=== PATIENT | female | born 2000 | race Caucasian/White ===

== ENCOUNTER 2018-01-03 12:13 | Emergency (ER) | payer OTHER ==
[~2018-01-03] VITALS: Ht 160 cm; Wt 85.3 kg
[~2018-01-03 12:13] MED LIST: MULT-506 PO
[2018-01-03 12:20] VITALS: BP 135/75; TEMP 36.9; Ht 160 cm; Wt 85.3 kg
--- NOTE | 2018-01-03 12:31 | EMERGENCY ROOM VISIT NOTE ---
History Report prepared by Nathan: Travis Boss Under the Supervision of: Dr. Jake Posey M.D. First contact with patient: 12:25 Chief Complaint: URINARY SYMPTOMS Stated Complaint: BURNING, HAVING TO PEE A LOT History of Present Illness The patient is a 17 year old female who presents to the Emergency Room with complaints of frequent, burning urination beginning several days ago. The patient reports a history of UTIs and notes that she has had 3 in the past. The patient denies any chance of and reports that her last period was 1 week ago. She denies any, drug allergies, back pain, fever, vomiting, chest pain , vaginal bleeding/discharge or history of kidney stones. 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 Source of History: patient Onset: several days ago Position: other () Quality: burning Timing: other (frequent) Associated Symptoms: No fevers, No chest pain, No vomiting, No back pain, No urinary symptoms Note: Denies: History of kidney stones, Review of Systems See HPI for pertinent positives & negatives. A total of 10 systems reviewed and were otherwise negative. Past Medical & Surgical Medical Problems: (1) UTI (urinary tract infection) Old medical records were reviewed. Nurse's notes were reviewed and I agree with. Family History Patient reports no known family medical history. Social History Smoking Status: Current Every Day Smoker Current/Historical Medications Scheduled Multivitamin (Multivitamin), 1 TAB PO DAILY Nitrofurantoin Monohyd Macrocr (Macrobid), 100 MG PO BID Allergies Coded Allergies: No Known Allergies (Unverified Allergy, Mild, 05/22/08) Physical Exam Vital Signs Date Time Temp Pulse Resp B/P (MAP) Pulse Ox O2 Delivery O2 Flow Rate FiO2 01/03/18 13:10 102 18 100 01/03/18 12:20 36.9 104 16 135/75 99 Room Air Physical Exam General: Non-ill appearing young female in no acute distress. HEENT: Normal cephalic atraumatic. Pupils are equal round and reactive to light. Extraocular movements are intact. Oropharynx is pink with moist mucous membranes. No swelling of the mouth lips or tongue. Neck: Supple with a midline trachea. No meningeal signs or stiffness, no JVD or bruits. No Stridor. Chest: Clear to auscultation bilaterally. No wheezes or rhonchi. No increased work of breathing. Heart: regular rate and rhythm. Abdomen: Soft nontender, nondistended without rebound guarding or rigidity. Extremities: No cyanosis clubbing or edema. No calf tenderness or assymetry Spine/Back. Non tender to palpation. No CVA tenderness Skin: Good turgor without rashes. Neurologic exam: Cranial nerves two through 12 are intact. Motor and sensation are intact and symmetrical throughout. Medical Decision & Procedures Laboratory Results Test 01/03/18 12:30 Urine Color OR Urine Appearance SLIGHTLY CLOUDY (CLEAR) Urine pH (4.5-7.5) Urine Specific [place] 1.022 (1.000-1.030) Urine Protein POS (NEG) Urine Glucose (UA) (NEG) Urine Ketones (NEG) Urine Occult Blood (NEG) Urine Nitrite (NEG) Urine Bilirubin (NEG) Urine Urobilinogen (NEG) Urine Leukocyte Esterase (NEG) Urine RBC 0-4 /hpf (0-4) Urine WBC >30 /hpf (0-5) Urine Epithelial Cells 20-30 /lpf (0-5) Urine Bacteria 1+ (NEG) Urine Test NEG (NEG) Laboratory studies as stated above per my review. Medications Administered Medications (Trade) Dose Ordered Sig/Gabby Route Start Time Stop Time Status Last Admin Dose Admin Nitrofurantoin Macrocrystals (Macrobid Cap) 100 mg ONE ONCE PO 01/03/18 13:00 01/03/18 13:01 DC 01/03/18 12:57 100 MG ED Course 1225: Past medical records reviewed. The patient was evaluated in room C11, and a complete history and physical examination were performed. 1300: Ordered Macrobid Cap 100mg PO. 1305: Upon reevaluation, the patient is resting comfortably. I discussed the results and treatment plan with her. She verbalized agreement of the treatment plan. The patient was discharged home. Medical Decision Differentials include, but are not limited to; kidney infection, This patient comes in with urinary symptoms that are similar to previous UTI. She looks well on exam she is nontoxic. She is afebrile. She has no flank tenderness or anything to suggest pyelonephritis. test was negative. Urinalysis is difficult to interpret due to the fact that she took Azo today. I will start her on Macrobid 100 mg given here as well as a prescription for Macrobid 100 mg twice daily for 5 days. She is to rest and drink plenty of fluids. She should return if: Worsening of symptoms, fever or chills, back pain , any new problems or concerns. Medication Reconcilliation Current Medication List: was personally reviewed by me Blood Pressure Screening Patient's blood pressure: Normal blood pressure Impression Primary Impression: UTI (urinary tract infection) Scribe Attestation The scribe's documentation has been prepared under my direction and personally reviewed by me in its entirety. I confirm that the note above accurately reflects all work, treatment, procedures, and medical decision making performed by me. Departure Information Dispostion Home / Self-Care Prescriptions Nitrofurantoin Monohyd Macrocr (Macrobid) 100 Mg Cap 100 MG PO BID, #10 CAP Prov: Jake Posey M.D. 01/03/18 Referrals Batool Flores M.D. (PCP) Forms HOME CARE DOCUMENTATION FORM, IMPORTANT VISIT INFORMATION Patient Instructions My [facility], UTI Additional Instructions Rest. Drink plenty of fluids. Use Macrobid 100 mg twice a day for the next 5 days Return if: Worsening of symptoms, failure of symptoms to resolve in 24-48 hours , back pain, fever, vomiting, any new problems or concerns Follow-up with your doctor this week if not better
[2018-01-03] MEDS ORDERED: NITR-5 PO (12:51)
[2018-01-03] MEDS ORDERED: NITROFURANTOIN MONOHYDRATE 100 MG CAP PO ONE (13:00)
[2018-01-03 13:10] VITALS: PULSE 102; O2SAT 100
== END 2018-01-03 13:11 | disposition home or self-care (01) ==
LOC: C.EDB 12:16 → C.EDC 13:11
DX: N39.0 Urinary tract infection, site not specified (principal); F17.210 Nicotine dependence, cigarettes, uncomplicated

== ENCOUNTER 2021-10-02 11:48 | Inpatient (IN) ==
[2021-10-02] MEDS ORDERED: OXYTOCIN 30 UNITS/500 ML BAG IV PRN ×2 (12:16)
[2021-10-02 12:34] LABS: Hematocrit (blood only) 37.9 % (37-47); Hemoglobin 12.8 g/dL (12.0-16.0); Mean Corpuscular Hemoglobin 30.8 pg (25-34); Mean Corpuscular Hgb Conc 33.8 g/dL (32-36); Mean Corpuscular Volume 91.1 fL (80-100); Mean Platelet Volume 11.7 fL (7.4-10.4); Platelet Count 190 K/uL (130-400); RDW Coefficient of Variation 13.5 % (11.5-14.5); RDW Standard Deviation 44.4 fL (36.4-46.3); Red Blood Count 4.16 M/uL (4.2-5.4); White Blood Count 12.97 K/uL (4.8-10.8)
[2021-10-02] MEDS: LACTATED RINGER'S 1,000 ML IV PRN ×3 (12:35→21:19)
--- NOTE | 2021-10-02 13:28 | History & Physical Report ---
Date of Service October 02, 2021 Assessment & Plan (1) Encounter for vaginal delivery: Plan: 20 year old at 40 weeks 1 day here for vaginal delivery. -IV started, ordered LR and Pitocin. -Continue to monitor vitals, heart rate monitor, and toco. -Epidural by patient request. -Plan for AROM when appropriate. Admission and Anticipated Discharge Date Admission Date: October 02, 2021 History of Present Illness Primary Care Provider: NO PCP 20 year old at 40weeks and 1 day confirmed via LMP. Here for vaginal delivery. No complications with . Has been attending OB appointments regularly. Only medication is vitamin. Contractions: every 5 minutes. Fluid or blood loss: Denies. Movement: Present. Allergies Allergy/AdvReac Type Severity Reaction Status Date / Time No Known Allergies Allergy Mild Verified 10/02/21 11:15 Home Medications Medication Instructions Recorded Confirmed Type prenat.vits,desiree,[id number] 1 tab PO DAILY 03/13/21 10/02/21 History Patient History Medical History No significant medical problems Varicella vaccination Surgical History No history of previous surgery Family History Grandmother (Maternal) Breast cancer Grandmother (Paternal) Heart disease Denies family history of Ovarian cancer Colorectal cancer Social History Smoking Status: Current every day smoker Cigarettes Per Day: 2-3; Do You Dip or Chew Tobacco: No; Tobacco Cessation Education Requested by Patient: No Hx Alcohol Use: No Hx Substance Use: No Preferred Language: Argentine Valet Service Attendant Required: No Beliefs That Will Affect Care: None marital status: Single marital status details: wilfrido Calderónnorberto (23) [phone] Current Living Situation: Significant Other Current Living Situation Comment: lives with grandmother, 3 dogs current occupational status: employed current occupation: [employer] Other Information That Helps Us Care for You: No Feels Safe at Home: Yes Safety Concerns: Feels Safe At This Time Assistive Devices: None OB History First . Review of Systems Denies fever, chills, sweats Denies shortness of breath, difficulty breathing, chest pain, palpitations, chest pressure. Denies breast pain. Denies dysuria. Denies headache or changes in vision Physical Exam Physical Exam: General: Alert, oriented. No acute distress. Cardiac: Regular rate and rhythm, no murmurs/rubs/gallops. Respiratory: Clear to auscultation bilaterally a/p, no wheezes/rales/rhonchi. No increased work of breathing. Symmetrical chest rise. No respiratory distress. Pelvic: Dilation 4.0 cm; Effacement 100; Station -[address] Otero. Lower Extremities: No deep calf pain. Baseline: 160 Variability: Moderate Accelerations: Present Decelerations: Not present. Results & Data ([facility]) Vital Signs (Past 12 Hours) Vital Signs Temp Pulse Resp BP 10/02/21 12:06 37.0 C 101 H 20 132/82 10/02/21 12:04 101 H 132/82 Laboratory Results - A+ - Antibody screen: Negative - Hgb: 12.8 - Hct: 37.9 - Wbc: 12.97 - Plt: 190 - Rubella Immune - VDRL/RPR: Non reactive. - Gonorrhea: Not detected - Chlamydia: Not detected - HIV: Negative - HbSAg: Negative - GBS: Negative - Glucose tolerance x 2: 82, 115. Supervising Physician Co-Signing Physician Notes Resident Physician Supervision Note: I interviewed and examined the patient. Discussed with Dr. Mercado and agree with findings and plan as documented in the note. Any exceptions or clarifications are listed here: 20yo @ 40 09/20, sent from office in labor - reg ctx with cervix dilated to 4cm and bulging membranes. Anika Q 5 min. A dmit to L&D, EFM/toco, labs, IV. Would like epidural. Documented By: Malou Otero, Resident Activity Tracking Resident Involvement: Resident Care Provided Care Provided: OB Delivery
[2021-10-02 13:47] LABS: Alanine Aminotransferase 8 U/L (7-52); Albumin Level 3.2 gm/dl (3.4-5.0); Alkaline Phosphatase 121 U/L (34-104); Anion Gap 10 (3-11); Aspartate Aminotransferase 12 U/L (13-39); BUN Creatinine Ratio 17.1 (10-20); Bilirubin,Total 0.4 mg/dl (0.2-1.0); Blood Urea Nitrogen 6 mg/dl (6-23); Calcium 8.7 mg/dl (8.5-10.1); Carbon Dioxide 18 mmol/L (21-32); Chloride 106 mmol/L (98-107); Creatinine Clr Calc Pharmacy 289.1 ml/min; Est GFR (African American) > 150.0 ml/min; Est GFR (Non-African American) > 150.0 ml/min; Globulin 3.1 gm/dl (2.5-4.0); Glucose 84 mg/dl (70-99(Fasting)); Potassium 3.7 mmol/L (3.5-5.1); Sodium 134 mmol/L (136-145); Total Protein 6.3 gm/dl (6.0-8.3)
[2021-10-02] MEDS ORDERED: ePHEDrine sulfate 50 MG/ML AMP ONE (15:43)
[2021-10-02] MEDS ORDERED: SODIUM CHLORIDE 0.9% INJ 10 ML VIAL ONE (15:43)
[2021-10-02] MEDS ORDERED: BUPIVACAINE 0.25% 30 ML VIAL ONE ×2 (15:43→21:16)
[2021-10-02] MEDS ORDERED: fentaNYL citrate 100 MCG/2 ML VIAL ONE ×2 (15:44→21:16)
[2021-10-02] MEDS ORDERED: fentaNYL 2MCG/ML ROPIVACAINE 1.25MG/ML 100 ML BAG EPI ONE (15:44)
--- NOTE | 2021-10-02 15:57 | Anesthesiology Consultation ---
Date of Service October 02, 2021 Assessment & Plan (1) Encounter for pre-operative examination: Chart Review Chart Review: Patient NOT seen in Pre Admission Testing and Acceptable Risk for Labor Epidural Consults Requested none History Height/Weight Height: 5 ft 3 in Weight: 102.965 kg Allergies Allergy/AdvReac Type Severity Reaction Status Date / Time No Known Allergies Allergy Mild Verified 10/02/21 11:15 Medications Home Medications Medication Instructions Recorded Confirmed Last Taken prenat.vits,desiree,vwx-[id number]-gmhfx 1 tab PO DAILY 03/13/21 10/02/21 07/30/21 Active Medications Generic Name Dose Route Start Last Admin Trade Name Freq PRN Reason Stop Dose Admin Lactated Ringer's 1,000 mls @ 125 mls/hr 10/02/21 12:16 10/02/21 15:53 Lr IV 10/04/21 12:15 999 mls/hr .Q8H PRN Infusion L&D Protocol Protocol Past Medical History Medical History No significant medical problems Varicella vaccination Past Family History Family History Grandmother (Maternal) Breast cancer Grandmother (Paternal) Heart disease Denies family history of Ovarian cancer Colorectal cancer Past Surgical History Surgical History No history of previous surgery Social History Smoking Status: Current every day smoker tobacco type: cigarettes Smoking cigarettes per day: 2-3 Do You Dip or Chew Tobacco: No Hx Alcohol Use: No Hx Substance Use: No substance use type: does not use Substance Use Type Other:: smoked marijuana last year Last Used Substance Other:: last year Physical Exam Vital Signs Last Vital Signs Temp 37.1 C 10/02/21 15:27 Pulse 104 H 10/02/21 15:27 Resp 20 10/02/21 15:27 BP 132/82 10/02/21 15:27 Testing Laboratory Results 10/02/21 12:20 10/02/21 12:20 Blood Type A Positive 10/02/21 12:20 Antibody Screen NEGATIVE 10/02/21 12:20
[2021-10-02] MEDS ORDERED: NALOXONE HCL 1 MG in SODIUM CHLORIDE 0.9% 1000ML 1,000 ML IV PRN (16:36)
[2021-10-02] MEDS ORDERED: NALOXONE HCL 0.4 MG/1 ML VIAL/CARP IV PRN (16:36)
[2021-10-02] MEDS ORDERED: ePHEDrine sulfate 50 MG/ML AMP IV PRN (16:36)
[2021-10-02] MEDS ORDERED: diphenhydrAMINE 50 MG/ML VIAL IV PRN (16:36)
[2021-10-02] MEDS ORDERED: NALBUPHINE HCL INJ 10 MG/ML AMP IV PRN (16:36)
[2021-10-02] MEDS: ONDANSETRON INJ 2 MG/ML 2 ML VIAL IV PRN (22:51)
[2021-10-02] MEDS: fentaNYL 2MCG/ML ROPIVACAINE 1.25MG/ML 100 ML BAG EPI PRN (22:54)
--- NOTE | 2021-10-03 00:43 | Labor Progress Brief Note ---
Date of Service October 03, 2021 Subjective AROM for clear fluid was performed 1730. Epidural helping with ctx pain, however low back discomfort from bed. FHT Cat 1 [place] difficult to read. SVE /-1 IUPC placed, continue pitocin. Assessment & Plan Admission and Anticipated Discharge Date Admission Date: October 02, 2021 Results & Data ([facility]) Vital Signs (Past 12 Hours) Vital Signs Temp Pulse Resp BP Pulse Ox 10/03/21 00:38 111 H 98 10/03/21 00:33 109 H 98 10/03/21 00:31 98 H 133/73 10/03/21 00:28 101 H 97 10/03/21 00:23 114 H 98 10/03/21 00:18 104 H 125/87 97 10/03/21 00:13 119 H 97 10/03/21 00:08 111 H 97 10/03/21 00:03 116 H 98 10/03/21 00:01 113 H 125/75 10/03/21 00:00 37.1 C 18 10/02/21 23:58 106 H 98 10/02/21 23:53 109 H 98 10/02/21 23:48 104 H 98 10/02/21 23:47 106 H 139/82 10/02/21 23:43 106 H 98 10/02/21 23:38 108 H 97 10/02/21 23:33 109 H 97 10/02/21 23:31 116 H 135/78 10/02/21 23:30 18 10/02/21 23:28 109 H 98 10/02/21 23:23 105 H 98 10/02/21 23:18 104 H 97 10/02/21 23:17 102 H 134/74 10/02/21 23:13 112 H 98 10/02/21 23:08 113 H 98 10/02/21 23:03 111 H 97 10/02/21 23:01 107 H 155/80 H 10/02/21 23:00 36.9 C 18 10/02/21 22:58 106 H 97 10/02/21 22:53 97 H 97 10/02/21 22:48 110 H 98 10/02/21 22:47 116 H 149/76 H 10/02/21 22:43 109 H 100 10/02/21 22:38 104 H 98 10/02/21 22:33 102 H 98 10/02/21 22:32 104 H 138/69 10/02/21 22:30 18 10/02/21 22:28 101 H 97 10/02/21 22:23 104 H 98 10/02/21 22:18 95 H 97 10/02/21 22:16 95 H 114/55 L 10/02/21 22:13 95 H 97 10/02/21 22:08 99 H 98 10/02/21 22:03 99 H 97 10/02/21 22:01 95 H 114/55 L 10/02/21 22:00 18 10/02/21 21:58 95 H 97 10/02/21 21:53 97 H 97 10/02/21 21:48 98 H 98 10/02/21 21:46 89 126/62 10/02/21 21:43 93 H 98 10/02/21 21:38 98 H 98 10/02/21 21:33 100 H 97 10/02/21 21:31 97 H 126/58 L 10/02/21 21:30 18 10/02/21 21:29 96 H 124/58 L 10/02/21 21:28 101 H 97 10/02/21 21:27 101 H 120/57 L 10/02/21 21:25 103 H 129/63 10/02/21 21:23 114 H 140/80 99 10/02/21 21:21 112 H 148/87 H 10/02/21 21:18 114 H 100 10/02/21 21:17 120 H 142/100 H 10/02/21 21:13 116 H 98 10/02/21 21:08 99 H 99 10/02/21 21:03 108 H 97 10/02/21 21:00 36.7 C 105 H 18 136/76 10/02/21 20:58 103 H 99 10/02/21 20:53 98 H 99 10/02/21 20:48 100 H 100 10/02/21 20:45 96 H 124/72 10/02/21 20:43 92 H 99 10/02/21 20:38 95 H 99 10/02/21 20:33 98 H 99 10/02/21 20:31 93 H 131/75 10/02/21 20:30 18 10/02/21 20:28 95 H 100 10/02/21 20:23 94 H 100 10/02/21 20:18 95 H 99 10/02/21 20:16 89 114/57 L 10/02/21 20:13 94 H 98 10/02/21 20:08 99 H 99 10/02/21 20:03 88 98 10/02/21 20:01 85 116/57 L 10/02/21 20:00 18 10/02/21 19:58 86 97 10/02/21 19:53 93 H 99 10/02/21 19:48 95 H 98 10/02/21 19:46 86 125/58 L 10/02/21 19:43 96 H 100 10/02/21 19:38 96 H 99 10/02/21 19:33 96 H 99 10/02/21 19:30 97 H 18 131/75 10/02/21 19:28 96 H 99 10/02/21 19:23 98 H 99 10/02/21 19:18 96 H 100 10/02/21 19:16 96 H 131/74 10/02/21 19:13 98 H 99 10/02/21 19:08 103 H 99 10/02/21 19:03 100 H 100 10/02/21 19:00 104 H 132/68 10/02/21 18:58 106 H 100 10/02/21 18:53 101 H 100 10/02/21 18:48 100 H 100 10/02/21 18:45 96 H 123/65 10/02/21 18:43 102 H 99 10/02/21 18:38 96 H 99 10/02/21 18:33 98 H 98 10/02/21 18:31 101 H 129/61 10/02/21 18:28 102 H 100 10/02/21 18:23 101 H 100 10/02/21 18:18 107 H 96 10/02/21 18:15 109 H 127/65 10/02/21 18:13 99 H 98 10/02/21 18:08 104 H 99 10/02/21 18:03 102 H 100 10/02/21 18:01 37.1 C 20 10/02/21 18:00 101 H 127/66 10/02/21 17:58 106 H 100 10/02/21 17:53 101 H 100 10/02/21 17:48 109 H 100 10/02/21 17:45 108 H 133/71 10/02/21 17:43 104 H 100 10/02/21 17:38 106 H 100 10/02/21 17:33 113 H 100 10/02/21 17:31 108 H 134/74 10/02/21 17:28 97 H 99 10/02/21 17:23 100 H 100 10/02/21 17:18 95 H 100 10/02/21 17:16 96 H 135/65 10/02/21 17:13 109 H 100 10/02/21 17:08 105 H 100 10/02/21 17:03 112 H 100 10/02/21 17:00 100 H 140/71 10/02/21 16:58 107 H 100 10/02/21 16:55 104 H 139/69 10/02/21 16:53 107 H 100 10/02/21 16:50 102 H 138/72 10/02/21 16:48 113 H 100 10/02/21 16:44 107 H 130/60 10/02/21 16:43 110 H 99 10/02/21 16:39 110 H 136/79 10/02/21 16:38 113 H 100 10/02/21 16:33 104 H 130/60 98 10/02/21 16:32 103 H 137/61 10/02/21 16:29 100 H 128/62 10/02/21 16:28 106 H 98 10/02/21 16:27 96 H 139/66 10/02/21 16:25 102 H 139/72 10/02/21 16:23 100 H 134/73 97 10/02/21 16:21 106 H 136/80 10/02/21 16:19 100 H 127/77 10/02/21 16:18 101 H 98 10/02/21 16:13 114 H 97 10/02/21 16:08 116 H 98 10/02/21 16:03 116 H 97 10/02/21 15:58 109 H 98 10/02/21 15:27 37.1 C 104 H 20 132/82 Coding Level of Care Code None
[2021-10-03] MEDS: fentaNYL 2MCG/ML ROPIVACAINE 1.25MG/ML 100 ML BAG EPI PRN ×3 (03:30→12:30)
[2021-10-03] MEDS ORDERED: NURSING L&D Epidural Breakthrough Pain Update ONE (03:53)
[2021-10-03] MEDS: LACTATED RINGER'S 1,000 ML IV PRN ×3 (05:16→15:25)
--- NOTE | 2021-10-03 07:34 | Labor Progress Brief Note ---
Date of Service October 03, 2021 Subjective Comfortable. FHT Cat 1 [place] - low amplitude ctx, Q 2-4 min SVE 6/100/-1 Discussed with pt that will need to increase pitocin, do not have an adequate labor pattern with IUPC. Assessment & Plan Admission and Anticipated Discharge Date Admission Date: October 02, 2021 Results & Data ([facility]) Vital Signs (Past 12 Hours) Vital Signs Temp Pulse Resp BP Pulse Ox 10/03/21 07:30 109 H 10/03/21 07:28 106 H 96 10/03/21 07:23 103 H 97 10/03/21 07:18 103 H 97 10/03/21 07:16 101 H 130/72 10/03/21 07:13 100 H 98 10/03/21 07:08 106 H 97 10/03/21 07:04 37.0 C 16 10/03/21 07:03 114 H 98 10/03/21 07:01 103 H 136/76 10/03/21 06:58 111 H 98 10/03/21 06:53 114 H 99 10/03/21 06:48 110 H 97 10/03/21 06:46 103 H 133/69 10/03/21 06:43 104 H 97 10/03/21 06:38 112 H 98 10/03/21 06:33 100 H 132/74 98 10/03/21 06:32 109 H 93 10/03/21 06:30 18 10/03/21 06:28 101 H 98 10/03/21 06:23 105 H 97 10/03/21 06:18 115 H 98 10/03/21 06:16 111 H 142/81 H 10/03/21 06:13 111 H 98 10/03/21 06:08 108 H 98 10/03/21 06:03 110 H 99 10/03/21 06:01 106 H 128/75 10/03/21 05:59 37.1 C 10/03/21 05:58 111 H 97 10/03/21 05:53 114 H 99 10/03/21 05:48 102 H 97 10/03/21 05:47 102 H 134/83 10/03/21 05:43 108 H 97 10/03/21 05:38 105 H 97 10/03/21 05:33 108 H 97 10/03/21 05:31 108 H 133/85 10/03/21 05:28 106 H 98 10/03/21 05:23 107 H 96 10/03/21 05:18 109 H 97 10/03/21 05:17 107 H 132/83 10/03/21 05:13 107 H 99 10/03/21 05:08 100 H 98 10/03/21 05:03 100 H 97 10/03/21 05:01 99 H 121/67 10/03/21 05:00 18 10/03/21 04:58 99 H 97 10/03/21 04:53 110 H 98 10/03/21 04:48 98 H 96 10/03/21 04:47 101 H 127/67 10/03/21 04:43 101 H 97 10/03/21 04:38 97 H 97 10/03/21 04:33 102 H 96 10/03/21 04:31 98 H 127/69 10/03/21 04:30 98 H 18 93 10/03/21 04:28 100 H 96 10/03/21 04:24 103 H 92 10/03/21 04:23 99 H 97 10/03/21 04:18 95 H 94 10/03/21 04:17 100 H 92 10/03/21 04:16 98 H 121/67 10/03/21 04:13 99 H 97 10/03/21 04:11 105 H 92 10/03/21 04:08 104 H 97 10/03/21 04:04 101 H 94 10/03/21 04:03 102 H 93 10/03/21 04:01 96 H 124/76 10/03/21 04:00 37.1 C 18 10/03/21 03:59 99 H 94 10/03/21 03:58 98 H 96 10/03/21 03:53 102 H 95 10/03/21 03:51 101 H 92 10/03/21 03:48 102 H 97 10/03/21 03:47 100 H 124/81 10/03/21 03:43 109 H 97 10/03/21 03:38 105 H 98 10/03/21 03:33 111 H 97 10/03/21 03:31 111 H 134/75 10/03/21 03:28 109 H 98 10/03/21 03:23 111 H 98 10/03/21 03:18 115 H 99 10/03/21 03:16 101 H 134/77 10/03/21 03:13 102 H 96 10/03/21 03:08 102 H 95 10/03/21 03:03 101 H 92 10/03/21 03:01 96 H 131/71 10/03/21 02:58 98 H 97 10/03/21 02:53 103 H 98 10/03/21 02:48 108 H 97 10/03/21 02:46 111 H 143/70 H 10/03/21 02:43 110 H 98 10/03/21 02:38 113 H 97 10/03/21 02:33 101 H 97 10/03/21 02:31 96 H 131/72 10/03/21 02:30 18 10/03/21 02:29 100 H 92 10/03/21 02:28 98 H 96 10/03/21 02:23 104 H 97 10/03/21 02:18 100 H 97 10/03/21 02:16 103 H 140/81 10/03/21 02:13 102 H 97 10/03/21 02:08 112 H 99 10/03/21 02:03 107 H 131/80 97 10/03/21 01:59 36.9 C 94 H 18 93 10/03/21 01:58 95 H 96 10/03/21 01:53 103 H 98 10/03/21 01:48 99 H 96 10/03/21 01:46 96 H 124/63 10/03/21 01:43 94 H 96 10/03/21 01:39 98 H 94 10/03/21 01:38 93 H 97 10/03/21 01:33 96 H 98 10/03/21 01:32 100 H 126/66 92 10/03/21 01:30 18 10/03/21 01:28 96 H 96 10/03/21 01:23 100 H 96 10/03/21 01:18 112 H 97 10/03/21 01:16 100 H 133/77 10/03/21 01:13 104 H 97 10/03/21 01:08 104 H 97 10/03/21 01:03 101 H 97 10/03/21 01:01 97 H 128/67 10/03/21 00:58 100 H 18 97 10/03/21 00:53 101 H 97 01/20/22 00:48 109 H 98 10/03/21 00:46 106 H 130/71 10/03/21 00:43 109 H 98 10/03/21 00:38 111 H 98 10/03/21 00:33 109 H 98 10/03/21 00:31 98 H 133/73 10/03/21 00:30 18 10/03/21 00:28 101 H 97 10/03/21 00:23 114 H 98 10/03/21 00:18 104 H 125/87 97 10/03/21 00:13 119 H 97 10/03/21 00:08 111 H 97 10/03/21 00:03 116 H 98 10/03/21 00:01 113 H 125/75 10/03/21 00:00 37.1 C 18 10/02/21 23:58 106 H 98 10/02/21 23:53 109 H 98 10/02/21 23:48 104 H 98 10/02/21 23:47 106 H 139/82 10/02/21 23:43 106 H 98 10/02/21 23:38 108 H 97 10/02/21 23:33 109 H 97 10/02/21 23:31 116 H 135/78 10/02/21 23:30 18 10/02/21 23:28 109 H 98 10/02/21 23:23 105 H 98 10/02/21 23:18 104 H 97 10/02/21 23:17 102 H 134/74 10/02/21 23:13 112 H 98 10/02/21 23:08 113 H 98 10/02/21 23:03 111 H 97 10/02/21 23:01 107 H 155/80 H 10/02/21 23:00 36.9 C 18 10/02/21 22:58 106 H 97 10/02/21 22:53 97 H 97 10/02/21 22:48 110 H 98 10/02/21 22:47 116 H 149/76 H 10/02/21 22:43 109 H 100 10/02/21 22:38 104 H 98 10/02/21 22:33 102 H 98 10/02/21 22:32 104 H 138/69 10/02/21 22:30 18 10/02/21 22:28 101 H 97 10/02/21 22:23 104 H 98 10/02/21 22:18 95 H 97 10/02/21 22:16 95 H 114/55 L 10/02/21 22:13 95 H 97 10/02/21 22:08 99 H 98 10/02/21 22:03 99 H 97 10/02/21 22:01 95 H 114/55 L 10/02/21 22:00 18 10/02/21 21:58 95 H 97 10/02/21 21:53 97 H 97 10/02/21 21:48 98 H 98 10/02/21 21:46 89 126/62 10/02/21 21:43 93 H 98 10/02/21 21:38 98 H 98 10/02/21 21:33 100 H 97 10/02/21 21:31 97 H 126/58 L 10/02/21 21:30 18 10/02/21 21:29 96 H 124/58 L 10/02/21 21:28 101 H 97 10/02/21 21:27 101 H 120/57 L 10/02/21 21:25 103 H 129/63 10/02/21 21:23 114 H 140/80 99 10/02/21 21:21 112 H 148/87 H 10/02/21 21:18 114 H 100 10/02/21 21:17 120 H 142/100 H 10/02/21 21:13 116 H 98 10/02/21 21:08 99 H 99 10/02/21 21:03 108 H 97 10/02/21 21:00 36.7 C 105 H 18 136/76 10/02/21 20:58 103 H 99 10/02/21 20:53 98 H 99 10/02/21 20:48 100 H 100 10/02/21 20:45 96 H 124/72 10/02/21 20:43 92 H 99 10/02/21 20:38 95 H 99 10/02/21 20:33 98 H 99 10/02/21 20:31 93 H 131/75 10/02/21 20:30 18 10/02/21 20:28 95 H 100 10/02/21 20:23 94 H 100 10/02/21 20:18 95 H 99 10/02/21 20:16 89 114/57 L 10/02/21 20:13 94 H 98 10/02/21 20:08 99 H 99 10/02/21 20:03 88 98 10/02/21 20:01 85 116/57 L 10/02/21 20:00 18 10/02/21 19:58 86 97 10/02/21 19:53 93 H 99 10/02/21 19:48 95 H 98 10/02/21 19:46 86 125/58 L 10/02/21 19:43 96 H 100 10/02/21 19:38 96 H 99 10/02/21 19:33 96 H 99 Coding Level of Care Code None
[2021-10-03] MEDS: ONDANSETRON INJ 2 MG/ML 2 ML VIAL IV PRN (10:52)
[2021-10-03] MEDS ORDERED: fentaNYL citrate 100 MCG/2 ML VIAL ONE ×2 (14:10→18:22)
[2021-10-03] MEDS ORDERED: LIDOCAINE 2% 20 MG/ML 5 ML SYR IV ONE (14:10)
[2021-10-03] MEDS ORDERED: BUPIVACAINE 0.25% 30 ML VIAL ONE ×2 (14:11→17:57)
--- NOTE | 2021-10-03 14:25 | Communication Note ---
Date of Service: October 03, 2021 pt c/o constant pain in the upper belly region. pt is laying on her side with peanut ball in place. had them sit patient up and place on back. bolused with 100 mcg of fentanyl, 3mL 2% lidocaine, and 5 mL 0.25% bupivicaine in divided doses. pt reports pain is more tolerable. vss
[2021-10-03] MEDS ORDERED: fentaNYL 2MCG/ML ROPIVACAINE 1.25MG/ML 100 ML BAG EPI ONE (17:33)
[2021-10-03] MEDS ORDERED: LACTATED RINGER'S 1,000 ML IV SCH ×2 (17:45→20:00)
--- NOTE | 2021-10-03 17:55 | Obstetrical Progress Note ---
Date of Service October 03, 2021 Assessment & Plan (1) Failure to progress in labor: Plan: cervix has remained the same for 4 hours- head feels asynclitic I suspect macrosomia as well After discussion with patient and SO will proceed with LTCS. the procedure and its risks were reviewed with the patient and all questions answered to their satisfaction. Admission and Anticipated Discharge Date Admission Date: October 02, 2021 Subjective slow progress in labor. difficult to obtain an effective contraction pattern. pitocin now at 23 milliunits and contractions are every minute low amplitude. Review of Systems Review of Systems: All systems reviewed & are unremarkable except as noted in HPI & below Physical Exam Constitutional: WD/WN, vitals as above Psychiatric: A+Ox3, euthymic affect Genitourinary: OB Exam Abdomen: + vertex, + estimated weight (8-9 pounds) and + regular contractions Manual OB Exam: + cervical dilation 7 cm, + cervical effacement 100% (right side now edematous) and + station 0 OB Exam Monitor Tracing: + external FHT monitor used, + external uterine monitor used, + category I and + normal FHT variability head asynclitic Results & Data (MN) Vital Signs (Past 12 Hours) Vital Signs Temp Pulse Resp BP Pulse Ox 10/03/21 17:50 123 H 98 10/03/21 17:47 127 H 162/89 H 10/03/21 17:45 125 H 98 10/03/21 17:40 127 H 98 10/03/21 17:35 131 H 98 10/03/21 17:30 126 H 97 10/03/21 17:25 123 H 98 10/03/21 17:20 128 H 99 10/03/21 17:16 118 H 162/79 H 10/03/21 17:15 122 H 98 10/03/21 17:10 122 H 97 10/03/21 17:05 120 H 97 10/03/21 17:02 120 H 142/77 H 10/03/21 17:01 98.6 F 20 10/03/21 17:00 121 H 99 10/03/21 16:55 121 H 98 10/03/21 16:50 119 H 98 10/03/21 16:47 120 H 136/73 10/03/21 16:45 124 H 99 10/03/21 16:40 114 H 98 10/03/21 16:35 112 H 99 10/03/21 16:31 109 H 20 148/78 H 10/03/21 16:30 113 H 98 10/03/21 16:25 115 H 97 10/03/21 16:20 118 H 97 10/03/21 16:18 108 H 142/80 H 10/03/21 16:15 108 H 97 10/03/21 16:10 120 H 97 10/03/21 16:05 115 H 97 10/03/21 16:02 110 H 162/84 H 10/03/21 16:01 20 10/03/21 16:00 111 H 96 10/03/21 15:55 115 H 98 10/03/21 15:50 123 H 99 10/03/21 15:46 123 H 144/85 H 10/03/21 15:45 126 H 100 10/03/21 15:40 121 H 100 10/03/21 15:35 118 H 99 10/03/21 15:32 116 H 143/65 H 10/03/21 15:31 20 10/03/21 15:30 118 H 99 10/03/21 15:27 119 H 92 10/03/21 15:25 125 H 98 10/03/21 15:20 119 H 99 10/03/21 15:18 121 H 139/78 10/03/21 15:15 120 H 100 10/03/21 15:10 122 H 99 10/03/21 15:05 98.2 F 122 H 20 99 10/03/21 15:01 115 H 143/82 H 10/03/21 15:00 117 H 98 10/03/21 14:55 117 H 97 10/03/21 14:54 117 H 137/79 10/03/21 14:50 119 H 98 10/03/21 14:45 113 H 16 96 10/03/21 14:40 119 H 97 10/03/21 14:35 120 H 96 10/03/21 14:30 117 H 16 136/78 97 10/03/21 14:28 116 H 143/86 H 10/03/21 14:26 113 H 139/82 10/03/21 14:25 115 H 95 10/03/21 14:24 110 H 140/84 94 10/03/21 14:22 116 H 140/87 10/03/21 14:20 116 H 139/85 97 10/03/21 14:18 118 H 150/89 H 10/03/21 14:15 122 H 16 152/82 H 99 10/03/21 14:10 120 H 100 10/03/21 14:05 118 H 100 10/03/21 14:01 112 H 140/89 10/03/21 14:00 113 H 16 97 10/03/21 13:55 112 H 97 10/03/21 13:50 129 H 98 10/03/21 13:46 120 H 130/72 10/03/21 13:45 120 H 16 100 10/03/21 13:40 117 H 100 10/03/21 13:35 118 H 99 10/03/21 13:31 112 H 127/72 10/03/21 13:30 98.8 F 112 H 16 99 10/03/21 13:25 109 H 98 10/03/21 13:20 111 H 97 10/03/21 13:07 119 H 97 10/03/21 13:02 117 H 97 10/03/21 13:01 118 H 20 138/88 10/03/21 12:57 119 H 97 10/03/21 12:52 113 H 96 10/03/21 12:47 111 H 129/78 97 10/03/21 12:42 114 H 97 10/03/21 12:33 115 H 100 10/03/21 12:32 111 H 140/94 10/03/21 12:30 18 10/03/21 12:28 112 H 100 10/03/21 12:23 106 H 98 10/03/21 12:18 109 H 98 10/03/21 12:16 101 H 141/77 H 10/03/21 12:15 18 10/03/21 12:13 105 H 97 10/03/21 12:08 107 H 97 10/03/21 12:03 107 H 100 10/03/21 12:01 94 H 142/77 H 10/03/21 12:00 18 10/03/21 11:58 112 H 98 10/03/21 11:53 103 H 97 10/03/21 11:48 115 H 99 10/03/21 11:46 108 H 142/80 H 10/03/21 11:45 18 10/03/21 11:43 107 H 98 10/03/21 11:38 113 H 98 10/03/21 11:33 106 H 98 10/03/21 11:31 107 H 135/83 10/03/21 11:30 16 10/03/21 11:28 108 H 98 10/03/21 11:23 103 H 99 10/03/21 11:18 106 H 98 10/03/21 11:16 107 H 129/82 10/03/21 11:15 16 10/03/21 11:13 110 H 98 10/03/21 11:08 113 H 99 10/03/21 11:03 109 H 97 10/03/21 11:01 105 H 125/59 L 10/03/21 10:58 99 H 99 10/03/21 10:53 108 H 97 10/03/21 10:51 108 H 154/82 H 10/03/21 10:48 113 H 98 10/03/21 10:47 110 H 161/90 H 10/03/21 10:45 16 10/03/21 10:43 114 H 99 10/03/21 10:38 106 H 97 10/03/21 10:33 108 H 97 10/03/21 10:32 107 H 128/62 10/03/21 10:30 16 10/03/21 10:28 102 H 97 10/03/21 10:23 103 H 97 10/03/21 10:18 107 H 97 10/03/21 10:16 108 H 124/60 10/03/21 10:15 16 10/03/21 10:13 103 H 97 10/03/21 10:08 109 H 96 10/03/21 10:03 103 H 96 10/03/21 10:02 102 H 123/57 L 10/03/21 10:01 106 H 94 10/03/21 10:00 16 10/03/21 09:58 109 H 96 10/03/21 09:53 117 H 97 10/03/21 09:48 119 H 97 10/03/21 09:46 110 H 140/82 10/03/21 09:45 18 10/03/21 09:43 110 H 97 10/03/21 09:38 108 H 97 10/03/21 09:36 103 H 93 10/03/21 09:33 115 H 97 10/03/21 09:32 112 H 124/56 L 10/03/21 09:30 18 10/03/21 09:28 105 H 98 10/03/21 09:23 103 H 97 10/03/21 09:18 103 H 98 10/03/21 09:17 105 H 136/80 10/03/21 09:15 98.8 F 16 10/03/21 09:13 115 H 98 10/03/21 09:08 108 H 98 10/03/21 09:03 101 H 95 10/03/21 09:02 101 H 142/75 H 94 10/03/21 09:01 20 10/03/21 08:58 102 H 95 10/03/21 08:55 99 H 93 10/03/21 08:53 101 H 98 10/03/21 08:50 18 10/03/21 08:48 109 H 99 10/03/21 08:46 109 H 139/79 10/03/21 08:43 109 H 97 10/03/21 08:38 114 H 98 10/03/21 08:35 18 10/03/21 08:33 108 H 98 10/03/21 08:32 109 H 132/73 10/03/21 08:28 112 H 98 10/03/21 08:23 111 H 97 10/03/21 08:20 18 10/03/21 08:18 106 H 97 10/03/21 08:17 105 H 133/75 10/03/21 08:13 111 H 98 10/03/21 08:08 108 H 97 10/03/21 08:05 16 10/03/21 08:03 103 H 97 10/03/21 08:02 104 H 133/76 10/03/21 07:58 102 H 97 10/03/21 07:53 102 H 96 10/03/21 07:50 18 10/03/21 07:48 106 H 97 10/03/21 07:47 110 H 129/66 10/03/21 07:43 128 H 98 10/03/21 07:38 114 H 97 10/03/21 07:35 18 10/03/21 07:33 112 H 97 10/03/21 07:32 104 H 133/78 10/03/21 07:30 109 H 94 10/03/21 07:28 106 H 96 10/03/21 07:23 103 H 97 10/03/21 07:20 18 10/03/21 07:18 103 H 97 10/03/21 07:16 101 H 130/72 10/03/21 07:13 100 H 98 10/03/21 07:08 106 H 97 10/03/21 07:04 98.6 F 16 10/03/21 07:03 114 H 98 10/03/21 07:01 103 H 136/76 10/03/21 06:58 111 H 98 10/03/21 06:53 114 H 99 10/03/21 06:48 110 H 97 10/03/21 06:46 103 H 133/69 10/03/21 06:43 104 H 97 10/03/21 06:38 112 H 98 10/03/21 06:33 100 H 132/74 98 10/03/21 06:32 109 H 93 10/03/21 06:30 18 10/03/21 06:28 101 H 98 10/03/21 06:23 105 H 97 10/03/21 06:18 115 H 98 10/03/21 06:16 111 H 142/81 H 10/03/21 06:13 111 H 98 10/03/21 06:08 108 H 98 10/03/21 06:03 110 H 99 10/03/21 06:01 106 H 128/75 10/03/21 05:59 98.8 F 10/03/21 05:58 111 H 97 10/03/21 05:53 114 H 99 PG Care Time/CCT Total # of Minutes Spent Total Time Spent with Patient: Total time spent is greater than 50% in coordination of care (as documented) at patient's floor/unit and/or counseling patient: Coding Level of Care Code None Diagnoses Failure to progress in labor O62.2
[2021-10-03] MEDS ORDERED: CITRIC ACID/SODIUM CITRATE 15 ML UDC ONE (18:15)
[2021-10-03] MEDS ORDERED: CHLOROPROCAINE HCL 3% 20 ML VIAL ONE (18:22)
[2021-10-03] MEDS ORDERED: OXYTOCIN 10 UNITS/ML 10ML VIAL ONE (18:22)
[2021-10-03] MEDS ORDERED: NALOXONE HCL 0.08 MG in SYRINGE 1.8 ML IV PRN (18:31)
[2021-10-03] MEDS ORDERED: NALOXONE HCL 1 MG in SODIUM CHLORIDE 0.9% 1000ML 1,000 ML IV PRN (18:31)
[2021-10-03] MEDS ORDERED: MoRPHine SULFATE 2 MG/ML CARP IV PRN (18:31)
[2021-10-03] MEDS ORDERED: NALOXONE HCL 0.4 MG/1 ML VIAL/CARP IV PRN (18:31)
[2021-10-03] MEDS ORDERED: diphenhydrAMINE 50 MG/ML VIAL IV PRN (18:31)
[2021-10-03] MEDS ORDERED: MoRPHine SULFATE PF 1 MG/ML 10 ML AMP/VIAL EPI ONE (18:31)
[2021-10-03] MEDS ORDERED: NALBUPHINE HCL INJ 10 MG/ML AMP IV PRN (18:31)
[2021-10-03] MEDS ORDERED: ePHEDrine sulfate 50 MG/ML AMP IV PRN (18:31)
[2021-10-03] MEDS ORDERED: LACTATED RINGER'S 500 ML IV PRN (18:31)
[2021-10-03] MEDS ORDERED: ONDANSETRON INJ 2 MG/ML 2 ML VIAL IV PRN (18:31)
--- NOTE | 2021-10-03 18:31 | Communication Note ---
Date of Service: October 03, 2021 pt is now for a primary csection for failure to progress. pt epidural has required several redoses and has been questionable if she has gotten significant relief. i decided it was best to replace the epidural prior to the csection. pt was identified. l3-l4 landmark found. sterile prep/drape/mask/gloves used. 1% lidocaine infiltrated. 17 gauge touey advanced to SUE to air at 6cm. easy catheter thread to 11 cm. test dose of 1% lido with epi. negative IV/IT. tegaderm placed and catheter secured. a bolus of 5ml 0.25% bupivicaine given. pt to go to OR.
[2021-10-03] MEDS ORDERED: NO NARCOTICS OR SEDATIVES SCH (18:45)
[2021-10-03] MEDS ORDERED: SODIUM CHLORIDE 0.9% 1000ML 1,000 ML IV SCH (18:45)
[2021-10-03] MEDS ORDERED: DC INTRASPINAL MORPHINE SCH (18:45)
[2021-10-03] MEDS ORDERED: MoRPHine SULFATE PF 1 MG/ML 10 ML AMP/VIAL ONE (18:48)
--- NOTE | 2021-10-03 19:43 | Post Operative Brief Note ---
PG Immediate Post Op with CF Date of Surgery October 03, 2021 Pre & Post Diagnosis Operation Date: 10/03/21 18:30 Pre-Op Diagnosis: Failure to progress in labor Post-Op Diagnosis: Failure to progress in labor I identified the patient and participated in the time-out.: Yes Procedure Operation Date: 10/03/21 18:30 Actual Procedures p Section in OR delivery of live male child at [id number]. (Bilateral) - Mary Mcgowan MD, FACOG Surgeon Mary Mcgowan MD, FACOG Cost Engineer Rodolfo Roa MD Estimated Blood Loss 750 Findings Consistent with Post-Op Diagnosis gravid uterus normal ovaries and tubes infant in OP presentation Specimens Specimen Description: A. Cord Blood B. Placenta - hold Drains Calhoun Catheter (Pt arrived to OR with calhoun intact. ) Anesthesia Type Labor Epidural Complications none Disposition Accompanied Patient To Recovery: Yes
[2021-10-03] MEDS ORDERED: SUPERCREAM 0.870% 15 GM JAR EXT PRN (19:59)
[2021-10-03] MEDS ORDERED: DIPHTHERIA/TETANUS/PERTUSSIS 0.5 ML SYR/VIAL IM ONE (19:59)
[2021-10-03] MEDS ORDERED: BENZOCAINE 20% AER SPR 82.5 GM CAN EXT PRN (19:59)
[2021-10-03] MEDS ORDERED: MAGNESIUM HYDROXIDE SUSP 30 ML UDC PO PRN (19:59)
[2021-10-03] MEDS ORDERED: SENNA 8.6 MG TAB PO PRN (19:59)
[2021-10-03] MEDS ORDERED: HYDROCORTISONE ACETATE 25 MG SUPP PR PRN (19:59)
--- NOTE | 2021-10-03 20:05 | Anesthesiology Progress Note ---
Date of Service October 03, 2021 Anesthesia Post Procedure Vital Signs Vital Signs: Temp Pulse Resp BP Pulse Ox 10/03/21 20:01 122 H 150/69 H 10/03/21 20:00 126 H 100 10/03/21 19:55 125 H 100 10/03/21 19:51 120 H 130/67 10/03/21 19:50 196 H 100 10/03/21 18:24 131 H 135/60 10/03/21 18:23 127 H 131/61 10/03/21 18:21 125 H 122/67 10/03/21 18:20 126 H 99 10/03/21 18:19 133 H 130/57 L 10/03/21 18:16 122 H 130/62 10/03/21 18:15 127 H 98 10/03/21 18:14 129 H 142/75 H 10/03/21 18:10 136 H 99 10/03/21 18:05 127 H 95 10/03/21 18:01 37.0 C 20 10/03/21 18:00 138 H 98 10/03/21 17:55 135 H 97 10/03/21 17:50 123 H 98 10/03/21 17:47 127 H 162/89 H 10/03/21 17:45 125 H 98 10/03/21 17:40 127 H 98 10/03/21 17:35 131 H 98 10/03/21 17:30 126 H 97 10/03/21 17:25 123 H 98 10/03/21 17:20 128 H 99 10/03/21 17:16 118 H 162/79 H 10/03/21 17:15 122 H 98 10/03/21 17:10 122 H 97 10/03/21 17:05 120 H 97 10/03/21 17:02 120 H 142/77 H 10/03/21 17:01 37.0 C 20 10/03/21 17:00 121 H 99 10/03/21 16:55 121 H 98 10/03/21 16:50 119 H 98 10/03/21 16:47 120 H 136/73 10/03/21 16:45 124 H 99 10/03/21 16:40 114 H 98 10/03/21 16:35 112 H 99 10/03/21 16:31 109 H 20 148/78 H 10/03/21 16:30 113 H 98 10/03/21 16:25 115 H 97 10/03/21 16:20 118 H 97 10/03/21 16:18 108 H 142/80 H 10/03/21 16:15 108 H 97 10/03/21 16:10 120 H 97 10/03/21 16:05 115 H 97 10/03/21 16:02 110 H 162/84 H 10/03/21 16:01 20 10/03/21 16:00 111 H 96 10/03/21 15:55 115 H 98 10/03/21 15:50 123 H 99 10/03/21 15:46 123 H 144/85 H 10/03/21 15:45 126 H 100 10/03/21 15:40 121 H 100 10/03/21 15:35 118 H 99 10/03/21 15:32 116 H 143/65 H 10/03/21 15:31 20 10/03/21 15:30 118 H 99 10/03/21 15:27 119 H 92 10/03/21 15:25 125 H 98 10/03/21 15:20 119 H 99 10/03/21 15:18 121 H 139/78 10/03/21 15:15 120 H 100 10/03/21 15:10 122 H 99 10/03/21 15:05 36.8 C 122 H 20 99 10/03/21 15:01 115 H 143/82 H 10/03/21 15:00 117 H 98 10/03/21 14:55 117 H 97 10/03/21 14:54 117 H 137/79 10/03/21 14:50 119 H 98 10/03/21 14:45 113 H 16 96 10/03/21 14:40 119 H 97 10/03/21 14:35 120 H 96 10/03/21 14:30 117 H 16 136/78 97 10/03/21 14:28 116 H 143/86 H 10/03/21 14:26 113 H 139/82 10/03/21 14:25 115 H 95 10/03/21 14:24 110 H 140/84 94 10/03/21 14:22 116 H 140/87 10/03/21 14:20 116 H 139/85 97 10/03/21 14:18 118 H 150/89 H 10/03/21 14:15 122 H 16 152/82 H 99 10/03/21 14:10 120 H 100 10/03/21 14:05 118 H 100 10/03/21 14:01 112 H 140/89 10/03/21 14:00 113 H 16 97 10/03/21 13:55 112 H 97 10/03/21 13:50 129 H 98 10/03/21 13:46 120 H 130/72 10/03/21 13:45 120 H 16 100 10/03/21 13:40 117 H 100 10/03/21 13:35 118 H 99 10/03/21 13:31 112 H 127/72 10/03/21 13:30 37.1 C 112 H 16 99 10/03/21 13:25 109 H 98 10/03/21 13:20 111 H 97 10/03/21 13:07 119 H 97 10/03/21 13:02 117 H 97 10/03/21 13:01 118 H 20 138/88 10/03/21 12:57 119 H 97 10/03/21 12:52 113 H 96 10/03/21 12:47 111 H 129/78 97 10/03/21 12:42 114 H 97 10/03/21 12:33 115 H 100 10/03/21 12:32 111 H 140/94 10/03/21 12:30 18 10/03/21 12:28 112 H 100 10/03/21 12:23 106 H 98 10/03/21 12:18 109 H 98 10/03/21 12:16 101 H 141/77 H 10/03/21 12:15 18 10/03/21 12:13 105 H 97 10/03/21 12:08 107 H 97 10/03/21 12:03 107 H 100 10/03/21 12:01 94 H 142/77 H 10/03/21 12:00 18 10/03/21 11:58 112 H 98 10/03/21 11:53 103 H 97 10/03/21 11:48 115 H 99 10/03/21 11:46 108 H 142/80 H 10/03/21 11:45 18 10/03/21 11:43 107 H 98 10/03/21 11:38 113 H 98 10/03/21 11:33 106 H 98 10/03/21 11:31 107 H 135/83 10/03/21 11:30 16 10/03/21 11:28 108 H 98 10/03/21 11:23 103 H 99 10/03/21 11:18 106 H 98 10/03/21 11:16 107 H 129/82 10/03/21 11:15 16 10/03/21 11:13 110 H 98 10/03/21 11:08 113 H 99 10/03/21 11:03 109 H 97 10/03/21 11:01 105 H 125/59 L 10/03/21 10:58 99 H 99 10/03/21 10:53 108 H 97 10/03/21 10:51 108 H 154/82 H 10/03/21 10:48 113 H 98 10/03/21 10:47 110 H 161/90 H 10/03/21 10:45 16 10/03/21 10:43 114 H 99 10/03/21 10:38 106 H 97 10/03/21 10:33 108 H 97 10/03/21 10:32 107 H 128/62 10/03/21 10:30 16 10/03/21 10:28 102 H 97 10/03/21 10:23 103 H 97 10/03/21 10:18 107 H 97 10/03/21 10:16 108 H 124/60 10/03/21 10:15 16 10/03/21 10:13 103 H 97 10/03/21 10:08 109 H 96 10/03/21 10:03 103 H 96 10/03/21 10:02 102 H 123/57 L 10/03/21 10:01 106 H 94 10/03/21 10:00 16 10/03/21 09:58 109 H 96 10/03/21 09:53 117 H 97 10/03/21 09:48 119 H 97 10/03/21 09:46 110 H 140/82 10/03/21 09:45 18 10/03/21 09:43 110 H 97 10/03/21 09:38 108 H 97 10/03/21 09:36 103 H 93 10/03/21 09:33 115 H 97 10/03/21 09:32 112 H 124/56 L 10/03/21 09:30 18 10/03/21 09:28 105 H 98 10/03/21 09:23 103 H 97 10/03/21 09:18 103 H 98 10/03/21 09:17 105 H 136/80 10/03/21 09:15 37.1 C 16 10/03/21 09:13 115 H 98 10/03/21 09:08 108 H 98 10/03/21 09:03 101 H 95 10/03/21 09:02 101 H 142/75 H 94 10/03/21 09:01 20 10/03/21 08:58 102 H 95 10/03/21 08:55 99 H 93 10/03/21 08:53 101 H 98 10/03/21 08:50 18 10/03/21 08:48 109 H 99 10/03/21 08:46 109 H 139/79 10/03/21 08:43 109 H 97 10/03/21 08:38 114 H 98 10/03/21 08:35 18 10/03/21 08:33 108 H 98 10/03/21 08:32 109 H 132/73 10/03/21 08:28 112 H 98 10/03/21 08:23 111 H 97 10/03/21 08:20 18 10/03/21 08:18 106 H 97 10/03/21 08:17 105 H 133/75 10/03/21 08:13 111 H 98 10/03/21 08:08 108 H 97 10/03/21 08:05 16 10/03/21 08:03 103 H 97 10/03/21 08:02 104 H 133/76 10/03/21 07:58 102 H 97 10/03/21 07:53 102 H 96 10/03/21 07:50 18 10/03/21 07:48 106 H 97 10/03/21 07:47 110 H 129/66 10/03/21 07:43 128 H 98 10/03/21 07:38 114 H 97 10/03/21 07:35 18 10/03/21 07:33 112 H 97 10/03/21 07:32 104 H 133/78 10/03/21 07:30 109 H 94 10/03/21 07:28 106 H 96 10/03/21 07:23 103 H 97 10/03/21 07:20 18 10/03/21 07:18 103 H 97 10/03/21 07:16 101 H 130/72 10/03/21 07:13 100 H 98 10/03/21 07:08 106 H 97 10/03/21 07:04 37.0 C 16 10/03/21 07:03 114 H 98 10/03/21 07:01 103 H 136/76 10/03/21 06:58 111 H 98 10/03/21 06:53 114 H 99 10/03/21 06:48 110 H 97 10/03/21 06:46 103 H 133/69 10/03/21 06:43 104 H 97 10/03/21 06:38 112 H 98 10/03/21 06:33 100 H 132/74 98 10/03/21 06:32 109 H 93 10/03/21 06:30 18 10/03/21 06:28 101 H 98 10/03/21 06:23 105 H 97 10/03/21 06:18 115 H 98 10/03/21 06:16 111 H 142/81 H 10/03/21 06:13 111 H 98 10/03/21 06:08 108 H 98 10/03/21 06:03 110 H 99 10/03/21 06:01 106 H 128/75 10/03/21 05:59 37.1 C 10/03/21 05:58 111 H 97 10/03/21 05:53 114 H 99 10/03/21 05:48 102 H 97 10/03/21 05:47 102 H 134/83 10/03/21 05:43 108 H 97 10/03/21 05:38 105 H 97 10/03/21 05:33 108 H 97 10/03/21 05:31 108 H 133/85 10/03/21 05:28 106 H 98 10/03/21 05:23 107 H 96 10/03/21 05:18 109 H 97 10/03/21 05:17 107 H 132/83 10/03/21 05:13 107 H 99 10/03/21 05:08 100 H 98 10/03/21 05:03 100 H 97 10/03/21 05:01 99 H 121/67 10/03/21 05:00 18 10/03/21 04:58 99 H 97 10/03/21 04:53 110 H 98 10/03/21 04:48 98 H 96 10/03/21 04:47 101 H 127/67 10/03/21 04:43 101 H 97 10/03/21 04:38 97 H 97 10/03/21 04:33 102 H 96 10/03/21 04:31 98 H 127/69 10/03/21 04:30 98 H 18 93 10/03/21 04:28 100 H 96 10/03/21 04:24 103 H 92 10/03/21 04:23 99 H 97 10/03/21 04:18 95 H 94 10/03/21 04:17 100 H 92 10/03/21 04:16 98 H 121/67 10/03/21 04:13 99 H 97 10/03/21 04:11 105 H 92 10/03/21 04:08 104 H 97 10/03/21 04:04 101 H 94 10/03/21 04:03 102 H 93 10/03/21 04:01 96 H 124/76 10/03/21 04:00 37.1 C 18 10/03/21 03:59 99 H 94 10/03/21 03:58 98 H 96 10/03/21 03:53 102 H 95 10/03/21 03:51 101 H 92 10/03/21 03:48 102 H 97 10/03/21 03:47 100 H 124/81 10/03/21 03:43 109 H 97 10/03/21 03:38 105 H 98 10/03/21 03:33 111 H 97 10/03/21 03:31 111 H 134/75 10/03/21 03:28 109 H 98 10/03/21 03:23 111 H 98 10/03/21 03:18 115 H 99 10/03/21 03:16 101 H 134/77 10/03/21 03:13 102 H 96 10/03/21 03:08 102 H 95 10/03/21 03:03 101 H 92 10/03/21 03:01 96 H 131/71 10/03/21 02:58 98 H 97 10/03/21 02:53 103 H 98 10/03/21 02:48 108 H 97 10/03/21 02:46 111 H 143/70 H 10/03/21 02:43 110 H 98 10/03/21 02:38 113 H 97 10/03/21 02:33 101 H 97 10/03/21 02:31 96 H 131/72 10/03/21 02:30 18 10/03/21 02:29 100 H 92 10/03/21 02:28 98 H 96 10/03/21 02:23 104 H 97 10/03/21 02:18 100 H 97 10/03/21 02:16 103 H 140/81 10/03/21 02:13 102 H 97 10/03/21 02:08 112 H 99 10/03/21 02:03 107 H 131/80 97 10/03/21 01:59 36.9 C 94 H 18 93 10/03/21 01:58 95 H 96 10/03/21 01:53 103 H 98 10/03/21 01:48 99 H 96 10/03/21 01:46 96 H 124/63 10/03/21 01:43 94 H 96 10/03/21 01:39 98 H 94 10/03/21 01:38 93 H 97 10/03/21 01:33 96 H 98 10/03/21 01:32 100 H 126/66 92 10/03/21 01:30 18 10/03/21 01:28 96 H 96 10/03/21 01:23 100 H 96 10/03/21 01:18 112 H 97 10/03/21 01:16 100 H 133/77 10/03/21 01:13 104 H 97 10/03/21 01:08 104 H 97 10/03/21 01:03 101 H 97 10/03/21 01:01 97 H 128/67 10/03/21 00:58 100 H 18 97 10/03/21 00:53 101 H 97 10/03/21 00:48 109 H 98 10/03/21 00:46 106 H 130/71 10/03/21 00:43 109 H 98 10/03/21 00:38 111 H 98 10/03/21 00:33 109 H 98 10/03/21 00:31 98 H 133/73 10/03/21 00:30 18 10/03/21 00:28 101 H 97 10/03/21 00:23 114 H 98 10/03/21 00:18 104 H 125/87 97 10/03/21 00:13 119 H 97 10/03/21 00:08 111 H 97 10/03/21 00:03 116 H 98 10/03/21 00:01 113 H 125/75 10/03/21 00:00 37.1 C 18 10/02/21 23:58 106 H 98 10/02/21 23:53 109 H 98 10/02/21 23:48 104 H 98 10/02/21 23:47 106 H 139/82 10/02/21 23:43 106 H 98 10/02/21 23:38 108 H 97 10/02/21 23:33 109 H 97 10/02/21 23:31 116 H 135/78 10/02/21 23:30 18 10/02/21 23:28 109 H 98 10/02/21 23:23 105 H 98 10/02/21 23:18 104 H 97 10/02/21 23:17 102 H 134/74 10/02/21 23:13 112 H 98 10/02/21 23:08 113 H 98 10/02/21 23:03 111 H 97 10/02/21 23:01 107 H 155/80 H 10/02/21 23:00 36.9 C 18 10/02/21 22:58 106 H 97 10/02/21 22:53 97 H 97 10/02/21 22:48 110 H 98 10/02/21 22:47 116 H 149/76 H 10/02/21 22:43 109 H 100 10/02/21 22:38 104 H 98 10/02/21 22:33 102 H 98 10/02/21 22:32 104 H 138/69 10/02/21 22:30 18 10/02/21 22:28 101 H 97 10/02/21 22:23 104 H 98 10/02/21 22:18 95 H 97 10/02/21 22:16 95 H 114/55 L 10/02/21 22:13 95 H 97 10/02/21 22:08 99 H 98 10/02/21 22:03 99 H 97 10/02/21 22:01 95 H 114/55 L 10/02/21 22:00 18 10/02/21 21:58 95 H 97 10/02/21 21:53 97 H 97 10/02/21 21:48 98 H 98 10/02/21 21:46 89 126/62 01/19/22 21:43 93 H 98 10/02/21 21:38 98 H 98 10/02/21 21:33 100 H 97 10/02/21 21:31 97 H 126/58 L 10/02/21 21:30 18 10/02/21 21:29 96 H 124/58 L 10/02/21 21:28 101 H 97 10/02/21 21:27 101 H 120/57 L 10/02/21 21:25 103 H 129/63 10/02/21 21:23 114 H 140/80 99 10/02/21 21:21 112 H 148/87 H 10/02/21 21:18 114 H 100 10/02/21 21:17 120 H 142/100 H 10/02/21 21:13 116 H 98 10/02/21 21:08 99 H 99 10/02/21 21:03 108 H 97 10/02/21 21:00 36.7 C 105 H 18 136/76 10/02/21 20:58 103 H 99 10/02/21 20:53 98 H 99 10/02/21 20:48 100 H 100 10/02/21 20:45 96 H 124/72 10/02/21 20:43 92 H 99 10/02/21 20:38 95 H 99 10/02/21 20:33 98 H 99 10/02/21 20:31 93 H 131/75 10/02/21 20:30 18 10/02/21 20:28 95 H 100 10/02/21 20:23 94 H 100 10/02/21 20:18 95 H 99 10/02/21 20:16 89 114/57 L 10/02/21 20:13 94 H 98 10/02/21 20:08 99 H 99 Pain Intensity Left Abdomen: Pain Intensity: 3 Bilateral Lower Back: Pain Intensity: 8 Transfer of Care Handoff Completed per policy Notes Mental Status: alert / awake / arousable and participated in evaluation Patient Amnestic to Procedure: Yes Nausea / Vomiting: adequately controlled Pain: adequately controlled Airway Patency, RR, SpO2: stable & adequate BP & HR: stable & adequate Hydration State: stable & adequate Anesthetic Complications: no major complications apparent and Pt Satisfied with anesthetic care
[2021-10-03] MEDS ORDERED: KETOROLAC 30 MG/ML VIAL ONE (20:11)
--- NOTE | 2021-10-03 20:11 | Operative Report ---
PG Post Operative Report Pre & Post Diagnosis Operation Date: 10/03/21 18:30 Pre-Op Diagnosis: Failure to progress in labor arrest of dilation Post-Op Diagnosis: Failure to progress in labor arrest of dilation OP presentation I identified the patient and participated in the time-out.: Yes Procedure Operation Date: 10/03/21 18:30 Actual Procedures p Section in OR delivery of live male child at 1857. (Bilateral) - Mary Mcgowan MD, FACOG Surgeon Mary Mcgowan MD, FACOG Account Manager [id number] Rodolfo Roa MD Estimated Blood Loss 750 Findings Consistent with Post-Op Diagnosis Specimens placenta and cord blood Drains Baxter catheter to straight drainage Anesthesia Type Labor Epidural Complications none Disposition Accompanied Patient To Recovery: Yes Indications Patient is a 20-year-old 1 P0 white female who had presented in active labor on 10/02/2021. She made slow progress in labor and required Pitocin augmentation. Epidural analgesia was effective but needed to be redosed several times. Despite adequate uterine contractions she progressed to 7 cm and did not dilate further for 4 hours. The head also seem to be in an asynclitic position. Because of arrest of dilation it was felt prudent to proceed with the low transverse section. Patient and significant other agreed to this plan and all the questions her afterward to their satisfaction. Description of Procedure After effective epidural anesthesia was achieved, a low transverse skin incision was made with a scalpel and carried to the fascia with the same scalpel. Bleeding in the adipose layer was controlled with the Bovie. The fascial incision was initiated with the scalpel and then extended in a transverse fashion with Anthony scissors. The edges were then grasped with Vrasha clamps and the overlying rectus muscles bluntly and sharply dissected off of the overlying fascia. The rectus muscles were then bluntly divided along the midline and the underlying peritoneum elevated and entered bluntly. The bladder was then taken down off of the anterior surface of the uterus and placed behind the bladder blade. The lower uterine segment was entered with a scalpel and extended transversely in a blunt fashion. The was delivered from the direct occiput posterior presentation with moderate fundal pressure. After the vertex was brought into the incision the rest of the delivered easily. The was vigorous and moving all 4 limbs. He was handed off to Dr. Vora who was attendance as dosier operator. The placenta was then manually removed and the uterus cystic exteriorized and covered with a clean lap sponge. The uterine cavity was explored and some retained membranes were removed with a ring forcep. The uterus was then closed in 2 layers in a running locking imbricating fashion with 0 Monocryl. There is an extension towards the cervix along the right side of the incision this was repaired along with the uterine incision. Hemostasis was noted to be satisfactory and the incision. The posterior cul-de-sac was cleared of some fluid. The uterus was then placed back in the abdominal cavity. Some clot were removed from the gutters bilaterally. There were also some clots in the anterior cul-de-sac that were removed as well. The uterine incision was examined once more continue to have excellent hemostasis. The rectus muscle were brought together on the midline with individual stitches of 0 Monocryl. The fascia was closed in a running fashion with 0 Vicryl. After irri gating the adipose layer the Eleanor's fascia was closed with 2-0 plain catgut in a running fashion. Skin edges were reapproximated using a subcuticular stitch of 4-0 Vicryl. Mother and tolerated the procedure well and were stable upon arrival back in labor and delivery. I attest to the content of the Intraoperative Record and any orders documented therein. Any exceptions are noted below. OB Procedure Charges 96614
[2021-10-03] MEDS: OXYTOCIN 20 UNITS in LACTATED RINGER'S 1,000 ML IV SCH (21:15)
[2021-10-04] MEDS: KETOROLAC 30 MG/ML VIAL IV PRN ×2 (03:46→11:30)
[2021-10-04] MEDS: OXYTOCIN 20 UNITS in LACTATED RINGER'S 1,000 ML IV SCH (04:45)
--- NOTE | 2021-10-04 06:19 | Obstetrical Progress Note ---
Date of Service <Tad DO Rogelio - Last Filed: 10/04/21 08:09> October 04, 2021 Assessment & Plan <Tad DO Rogelio - Last Filed: 10/04/21 08:09> (1) Encounter for care and examination after delivery: 20 yo post op day 1 from C/S, doing well. -Continue routine post care. -Mildly tachycardic, other vitals WNL. (Tmax 37.7) -Blood type A+, GBS Negative, Rubella Immune -Encourage ambulation, monitor and control pain with Motrin, tylenol PRN, resume regular diet, monitor lochia. -encourage breast feeding. Breast pump already has. -hemoglobin 8.7 <Mary Mcgowan MD, FACOG - Last Filed: 10/04/21 09:59> (1) Encounter for care and examination after delivery: Resident Physician Supervision Note: I was present with Dr. Mercado during the history and exam. I discussed the case with the resident and agree with the findings and plan as documented in the note. Any exceptions or clarifications are listed here: [None] Documented By: Mary Mcgowan MD, FACOG Subjective <Tad Mercado DO - Last Filed: 10/04/21 08:09> Ambulation: limited ambulation Voiding: calhoun catheter in place Passing Gas:: Yes Diet Tolerance:: clear liquids Lochia:: Small Feeding Type:: breast feeding Current Pain Level(1-10): 0 (Pain only with movement at this time. ) Review of Systems Denies fever, chills, sweats Denies shortness of breath, difficulty breathing, chest pain, palpitations, chest pressure. Denies breast pain. Denies dysuria. Denies headache or changes in vision Physical Exam <Tad Mercado DO - Last Filed: 10/04/21 08:09> General: Alert, oriented. No acute distress. Cardiac: Regular rate and rhythm, no murmurs/rubs/gallops. Respiratory: Clear to auscultation bilaterally a/p, no wheezes/rales/rhonchi. No increased work of breathing. Symmetrical chest rise. No respiratory distress. Abdomen: Soft, nontender, nondistended. Bowel sounds present. Uterus: Uterine fundus firm, palpable 2 cm below umbilicus. Surgical scar clean and healing well. Lower Extremities: No lower extremity edema or swelling. No deep calf pain. Lesli's negative bilaterally Results & Data ([facility]) <Tad Mercado DO - Last Filed: 10/04/21 08:09> Vital Signs (Past 12 Hours) Vital Signs Temp Pulse Pulse Resp BP BP Pulse Ox 10/04/21 05:35 16 97 10/04/21 04:50 37.4 C 10/04/21 04:35 18 98 10/04/21 03:35 16 95 10/04/21 03:30 37.7 C H 118 H 18 121/65 98 10/04/21 02:35 16 95 10/04/21 01:35 16 96 10/04/21 00:35 17 96 10/03/21 23:35 16 95 10/03/21 22:35 37.6 C H 114 H 18 119/68 96 10/03/21 22:12 122 H 127/76 10/03/21 22:10 121 H 97 10/03/21 22:05 119 H 96 10/03/21 22:00 125 H 97 10/03/21 21:55 36.9 C 125 H 20 97 10/03/21 21:50 129 H 97 10/03/21 21:45 125 H 97 10/03/21 21:41 122 H 121/57 L 10/03/21 21:40 136 H 95 10/03/21 21:35 122 H 98 10/03/21 21:33 126 H 128/65 10/03/21 21:30 128 H 98 10/03/21 21:25 126 H 98 10/03/21 21:21 129 H 115/66 10/03/21 21:20 36.9 C 126 H 20 97 10/03/21 21:15 123 H 97 10/03/21 21:11 125 H 125/72 10/03/21 21:10 126 H 98 10/03/21 21:05 130 H 98 10/03/21 21:01 123 H 142/70 H 10/03/21 21:00 125 H 97 10/03/21 20:55 130 H 97 10/03/21 20:51 127 H 134/70 10/03/21 20:50 127 H 20 98 10/03/21 20:45 129 H 98 10/03/21 20:41 129 H 133/68 10/03/21 20:40 125 H 20 98 10/03/21 20:35 118 H 97 10/03/21 20:31 115 H 135/70 10/03/21 20:30 117 H 20 98 10/03/21 20:25 118 H 98 10/03/21 20:21 129 H 131/64 10/03/21 20:20 121 H 20 99 10/03/21 20:15 119 H 100 10/03/21 20:11 115 H 144/69 H 10/03/21 20:10 120 H 20 100 10/03/21 20:05 119 H 100 10/03/21 20:01 122 H 150/69 H 10/03/21 20:00 126 H 20 100 10/03/21 19:55 125 H 100 10/03/21 19:51 120 H 130/67 10/03/21 19:50 36.8 C 196 H 20 100 10/03/21 18:24 131 H 135/60 10/03/21 18:23 127 H 131/61 10/03/21 18:21 125 H 122/67 10/03/21 18:20 126 H 99 10/03/21 18:19 133 H 130/57 L Resident Activity Tracking <Tad Mercado, DO - Last Filed: 10/04/21 08:09> Resident Involvement: Resident Care Provided Care Provided: OB Delivery
[2021-10-04 07:14] LABS: Basophils # (auto) 0.01 K/uL (0-0.2); Basophils % (auto) 0.1 %; Eosinophils # (auto) 0.07 K/uL (0-0.5); Eosinophils % (auto) 0.6 %; Hematocrit (blood only) 26.4 % (37-47); Hemoglobin 8.7 g/dL (12.0-16.0); Immature Granulocytes # (auto) 0.04 K/uL (0.00-0.02); Immature Granulocytes % (auto) 0.4 %; Lymphocytes # (auto) 2.07 K/uL (1.2-3.4); Lymphocytes % (auto) 18.6 %; Mean Corpuscular Hemoglobin 30.7 pg (25-34); Mean Corpuscular Volume 93.3 fL (80-100); Mean Platelet Volume 10.9 fL (7.4-10.4); Monocytes # (auto) 0.76 K/uL (0.11-0.59); Monocytes % (auto) 6.8 %; Neutrophils % (auto) 73.5 %; Platelet Count 150 K/uL (130-400); RDW Coefficient of Variation 13.8 % (11.5-14.5); RDW Standard Deviation 47.3 fL (36.4-46.3); Red Blood Count 2.83 M/uL (4.2-5.4); White Blood Count 11.15 K/uL (4.8-10.8)
[2021-10-04] MEDS: DOCUSATE SODIUM 100 MG CAP PO SCH ×2 (09:14→22:00)
[2021-10-04] MEDS: PRENATAL VITAMIN 1 TAB PO SCH (09:15)
[2021-10-04] MEDS: SIMETHICONE 80 MG CHEW PO SCH ×4 (09:15→22:01)
[2021-10-04] MEDS: FERROUS SULFATE 325 MG TAB PO SCH (09:15)
[2021-10-04] MEDS ORDERED: ONDANSETRON INJ 2 MG/ML 2 ML VIAL IV PRN (12:32)
[2021-10-04] MEDS ORDERED: diphenhydrAMINE 50 MG/ML VIAL IV PRN (12:32)
[2021-10-04] MEDS ORDERED: PROMETHAZINE HCL 25 MG in SODIUM CHLORIDE 0.9% 50 ML IV PRN (12:32)
[2021-10-04] MEDS ORDERED: ZOLPIDEM TARTRATE 5 MG TAB PO PRN (12:32)
[2021-10-04] MEDS ORDERED: diphenhydrAMINE Capsule 25 MG CAP PO PRN (12:32)
[2021-10-04] MEDS ORDERED: MEPERIDINE HCL 50 MG/ML CARP IV PRN (12:32)
[2021-10-04] MEDS ORDERED: KETOROLAC 30 MG/ML VIAL IV PRN (12:32)
[2021-10-04] MEDS: oxyCODONE/ACETAMINOPHEN 5mg/325mg TAB PO PRN ×2 (18:24→23:13)
[2021-10-04] MEDS: IBUPROFEN 600 MG TAB PO PRN ×2 (18:24→23:13)
[2021-10-04] MEDS ORDERED: bisacodyL 5 MG TABEC PO SCH (20:00)
--- NOTE | 2021-10-05 06:16 | Obstetrical Progress Note ---
Date of Service <Tad Mercado DO - Last Filed: 10/05/21 07:29> October 05, 2021 Assessment & Plan <Tad Mercado DO - Last Filed: 10/05/21 07:29> (1) Encounter for care and examination after delivery: 20 yo post op day 2 from C/S, doing well. -Continue routine post care. -Mildly tachycardic, other vitals WNL. (Tmax 37.7) -Blood type A+, GBS Negative, Rubella Immune -Encourage ambulation, monitor and control pain with Motrin, tylenol PRN, resume regular diet, monitor lochia. -encourage breast feeding. Breast pump already has. -hemoglobin 8.3 -Plan for discharge tomorrow. <Julieta Roa MD, FACOG - Last Filed: 10/05/21 07:41> (1) Encounter for care and examination after delivery: Subjective <Tad Mercado - Last Filed: 10/05/21 07:29> Ambulation: ambulating normally Voiding: no voiding problems Passing Gas:: Yes Diet Tolerance:: regular diet Lochia:: Small Feeding Type:: breast feeding Current Pain Level(1-10): 0 Review of Systems Denies fever, chills, sweats Denies shortness of breath, difficulty breathing, chest pain, palpitations, chest pressure. Denies breast pain. Denies dysuria. Denies headache or changes in vision Physical Exam <Tad Mercado DO - Last Filed: 10/05/21 07:29> General: Alert, oriented. No acute distress. Cardiac: Regular rate and rhythm, no murmurs/rubs/gallops. Respiratory: Clear to auscultation bilaterally a/p, no wheezes/rales/rhonchi. No increased work of breathing. Symmetrical chest rise. No respiratory distress. Abdomen: Soft, nontender, nondistended. Bowel sounds present. Uterus: Uterine fundus firm, palpable 2 cm below umbilicus. Surgical scar clean and healing well. Lower Extremities: No lower extremity edema or swelling. No deep calf pain. Lesli's negative bilaterally Results & Data ([facility]) <Tad Nashmigueljunior - Last Filed: 10/05/21 07:29> Vital Signs (Past 12 Hours) Vital Signs Temp Pulse Resp BP 10/04/21 23:29 37.1 C 99 H 18 120/74 10/04/21 19:30 37.4 C 128 H 18 142/78 H <Julieta Roa MD, FACOG - Last Filed: 10/05/21 07:41> Co-Signing Physician Notes Resident Physician Supervision Note: I was present with [Name of resident] during the history and exam. I discussed the case with the resident and agree with the findings and plan as documented in the note. Any exceptions or clarifications are listed here: [None] Documented By: Julieta Roa MD, FACOG Resident Activity Tracking <Tad Mercado DO - Last Filed: 10/05/21 07:29> Resident Involvement: Resident Care Provided Care Provided: OB Delivery
[2021-10-05] MEDS: IBUPROFEN 600 MG TAB PO PRN ×4 (06:33→21:40)
[2021-10-05] MEDS: oxyCODONE/ACETAMINOPHEN 5mg/325mg TAB PO PRN ×4 (06:34→21:40)
[2021-10-05 07:20] LABS: Hematocrit (blood only) 24.9 % (37-47); Hemoglobin 8.3 g/dL (12.0-16.0)
[2021-10-05] MEDS: SIMETHICONE 80 MG CHEW PO SCH ×5 (09:39→21:40)
[2021-10-05] MEDS: DOCUSATE SODIUM 100 MG CAP PO SCH ×3 (09:40→21:40)
[2021-10-05] MEDS: FERROUS SULFATE 325 MG TAB PO SCH (09:40)
[2021-10-05] MEDS: PRENATAL VITAMIN 1 TAB PO SCH (09:40)
[2021-10-05] MEDS ORDERED: bisacodyL 10 MG SUPP PR PRN (19:59)
[2021-10-06] MEDS: IBUPROFEN 600 MG TAB PO PRN ×2 (03:51→10:11)
[2021-10-06] MEDS: SIMETHICONE 80 MG CHEW PO SCH (08:58)
[2021-10-06] MEDS: PRENATAL VITAMIN 1 TAB PO SCH (08:58)
[2021-10-06] MEDS: DOCUSATE SODIUM 100 MG CAP PO SCH (08:58)
[2021-10-06] MEDS: FERROUS SULFATE 325 MG TAB PO SCH (08:58)
[2021-10-06] MEDS: oxyCODONE/ACETAMINOPHEN 5mg/325mg TAB PO PRN (10:11)
--- NOTE | 2021-10-06 10:40 | Obstetrical Progress Note ---
Date of Service October 06, 2021 Assessment & Plan (1) Encounter for care and examination after delivery: 20yo s/p LTCS. Doing well. Stable for discharge Subjective Ambulation: ambulating normally Voiding: no voiding problems Passing Gas:: Yes Diet Tolerance:: regular diet Lochia:: Moderate Feeding Type:: breast feeding Physical Exam Constitutional WD/WN, vitals as above Respiratory normal respiratory effort; no respiratory distress and no labored breathing Gastrointestinal (Abdomen) Inspection/Auscultation: abdomen normal to inspection; abdomen not distended Percussion/Palpation: abdomen soft; abdomen nontender, no guarding and abdomen not rigid Incision: C/D/I Genitourinary OB Exam Abdomen: + fundal height Fundus: + firm and + relation to umbilicus (Below); not tender or not boggy Results & Data ([facility]) Vital Signs (Past 12 Hours) Vital Signs Temp Pulse Resp BP Pulse Ox 10/06/21 08:00 37.0 C 99 H 18 127/82 100 10/06/21 00:25 37 C 92 H 16 127/87 100
--- NOTE | 2021-10-09 23:52 | Discharge Summary (DS) ---
DATE OF PROCEDURE: 10/03/2021. PRINCIPAL DIAGNOSIS: Arrest of dilation at 40 weeks. PRINCIPAL PROCEDURE: Primary low transverse section. BRIEF HISTORY: The patient is a 20-year-old 1, P0 white female who presented in active labor on 10/02/2021. She made slow progress and did require Pitocin augmentation. She progressed to 7 cm and did not dilate further despite adequate contractions for over 4 hours. She was taken for low tr ansverse section. The head was in the occiput posterior presentation upon delivery. S he had an uncomplicated postoperative course, she remained afebrile throughout her hospital stay, eat ing regular food and ambulating without difficulty on her first postop day. She had no issues with v oiding. Pain medications worked well to control her incisional pain. Hemoglobin on admission was 12.8, hematocrit 37.9. First postop day hemoglobin 9.7, hematocrit 26.4. Second postop day, hemoglobin 8.3, hematocrit 24.9. She was sent home in good condition with prescr iptions for Motrin 600 mg p.o. q. 6 hours p.r.n. pain, Percocet 1 tablet p.o. q. 6 hours p.r.n. pain. She is to be seen in the office in 6 weeks for a followup visit. She is to call for temperature of 101 degrees or higher, heavy vaginal bleeding, burning with urination, increased redness, drainage o r pain in her incision, calf tenderness or any other concerns. Job ID: [id number]
== END 2021-10-06 12:00 | disposition home or self-care (01) | DRG 788 ==
LOC: OPB 11:48 → 4S1 11:49 → 4S2 10-03 22:47
DX: F17.210 Nicotine dependence, cigarettes, uncomplicated; O99.334 Smoking (tobacco) complicating childbirth; O62.1 Secondary uterine inertia; Z37.0 Single live birth; Z3A.40 40 weeks gestation of pregnancy

== ENCOUNTER 2023-08-28 07:30 | Inpatient (IN) ==
--- NOTE | 2023-08-21 08:26 | Anesthesiology Consultation ---
Date of Service August 21, 2023 Assessment & Plan (1) Encounter for pre-operative examination: Infectious disease screening: Per assessment on 08/20/23: No known infectious disease contacts or current infectious disease symptoms.Patient was Covid positive (07/30/23, [place]). Symptoms at time of cough, sore throat, fever > now resolved. Pt can proceed as scheduled without additional preop Covid testing or additional Covid contact precautions per protocol. 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 Surgery Operation Date: 08/28/23 07:30 Proposed Procedures p Section in LD (Delivery of Baby Through Abdominal Incision) - Mirella Cummings MD Height/Weight Height: 5 ft 4 in Weight: 117.934 kg Allergies Allergy/AdvReac Type Severity Reaction Status Date / Time No Known Allergies Allergy Mild Verified 08/20/23 16:01 Medications Home Medications Medication Instructions Recorded Confirmed Last Taken prenat.vits,desiree,hsm-oofc-okxfh 1 tab PO DAILY 01/21/23 08/20/23 07/29/23 Past Medical History Medical History History of COVID-19 07/30/23>resolved HPV (human papilloma virus) infection Varicella vaccination Past Family History Family History Grandmother (Maternal) Breast cancer Grandmother (Paternal) Heart disease Aunt Lung cancer Other No family history of adverse response to anesthesia Denies family history of Ovarian cancer Colorectal cancer Past Surgical History Surgical History History of tooth extraction S/P section x 1 Social History Smoking Status: Former smoker tobacco type: cigarettes Do You Dip or Chew Tobacco: No Smoking End Date: December 2022 Hx Alcohol Use: No Hx Substance Use: No substance use type: does not use Substance Use Type Other:: smoked marijuana last year Last Used Substance Other:: last year Lab Results Anesthesia Preop Results Results Anesthesia Widget: WBC 8.32 K/ul (4.8-10.8) 07/30/23 Hgb 11.3 g/dl (12.0-16.0) L 07/30/23 Hct 33.8 % (37.0-47.0) L 07/30/23 Plt 115 K/uL (130-400) L 07/30/23 Na 136 mmol/L (136-145) 07/30/23 K 3.2 mmol/L (3.5-5.1) L 07/30/23 Cl 106 mmol/L (98-107) 07/30/23 CO2 20 mmol/L (21-32) L 07/30/23 BUN 5 mg/dl (6-23) L 07/30/23 Creat 0.39 mg/dl (0.6-1.2) L 07/30/23 Glucose Level 98 mg/dl (70-99(Fasting)) 07/30/23 Coronavirus OC43 (PCR) Not Detected (NotDetected) 07/30/23 Coronavirus HKU1 (PCR) Not Detected (NotDetected) 07/30/23 Coronavirus 229E (PCR) Not Detected (NotDetected) 07/30/23 COVID-19 PCR DETECTED (NotDetected) A* 07/30/23 Coronavirus NL63 (PCR) Not Detected (NotDetected) 07/30/23
[~2023-08-28 07:30] MED LIST changes: +CITRIC ACID/SODIUM CITRATE 15 ML UDC PO SCH; +LACTATED RINGER'S 1,000 ML IV SCH; -MULT-506 PO; +ceFAZolin 3,000 MG in DEXTROSE 5% 50 ML IV SCH
[2023-08-28] MEDS ORDERED: OXYTOCIN 30 UNITS/NSS 30 UNITS/500 ML BAG IV PRN (08:43)
[2023-08-28] MEDS ORDERED: LIDOCAINE 1% LOCAL 20 ML VIAL INFIL PRN (08:43)
[2023-08-28] MEDS ORDERED: SODIUM CHLORIDE 0.9% 250 ML IV PRN (09:08)
[2023-08-28 09:10] LABS: Basophils # (auto) 0.02 K/uL (0.00-0.20); Basophils % (auto) 0.2 %; Eosinophils # (auto) 0.05 K/uL (0.00-0.50); Eosinophils % (auto) 0.5 %; Hematocrit (blood only) 35.7 % (37.0-47.0); Hemoglobin 11.8 g/dl (12.0-16.0); Immature Granulocytes # (auto) 0.08 K/uL (0.01-0.20); Immature Granulocytes % (auto) 0.8 %; Lymphocytes # (auto) 2.55 K/uL (1.20-3.40); Lymphocytes % (auto) 25.9 %; Mean Corpuscular Hemoglobin 29.4 pg (25.0-34.0); Mean Corpuscular Hgb Conc 33.1 g/dL (32.0-36.0); Mean Platelet Volume 12.1 fL (9.4-12.4); Monocytes # (auto) 0.61 K/uL (0.11-0.59); Monocytes % (auto) 6.2 %; Neutrophils # (auto) 6.53 K/uL (1.40-6.50); Neutrophils % (auto) 66.4 %; Platelet Count 133 K/uL (130-400); RDW Coefficient of Variation 14.9 % (11.5-14.5); RDW Standard Deviation 47.6 fL (36.4-46.3); Red Blood Count 4.01 M/uL (4.20-5.40); White Blood Count 9.84 K/ul (4.8-10.8)
--- NOTE | 2023-08-28 09:10 | History & Physical Bridge Note ---
Date of Service August 28, 2023 History & Physical Bridge Note I have examined the patient, reviewed the History & Physical and in the interval since the performance of the History & Physical I have noted the following changes of clinical significance: no changes noted
[2023-08-28] MEDS ORDERED: MoRPHine SULFATE PF 1 MG/ML 10 ML AMP/VIAL ONE (09:37)
[2023-08-28] MEDS ORDERED: LACTATED RINGER'S 500 ML IV PRN (09:42)
[2023-08-28] MEDS ORDERED: METOCLOPRAMIDE HCL 20 MG in SODIUM CHLORIDE 0.9% 50 ML IV PRN (09:42)
[2023-08-28] MEDS ORDERED: MoRPHine SULFATE PF 1 MG/ML 10 ML AMP/VIAL INT SPINAL ONE (09:42)
[2023-08-28] MEDS ORDERED: KETOROLAC 30 MG/ML VIAL IV PRN (09:42)
[2023-08-28] MEDS ORDERED: NALBUPHINE HCL 5 MG in SYRINGE 0 ML IV PRN (09:42)
[2023-08-28] MEDS ORDERED: NALOXONE HCL 1 MG in SODIUM CHLORIDE 0.9% 1,000 ML IV PRN (09:42)
[2023-08-28] MEDS ORDERED: ePHEDrine sulfate 50 MG/ML AMP IV PRN (09:42)
[2023-08-28] MEDS ORDERED: PROMETHAZINE HCL 25 MG in SODIUM CHLORIDE 0.9% 50 ML IV PRN (09:42)
[2023-08-28] MEDS ORDERED: NALOXONE HCL 0.08 MG in SYRINGE 1.8 ML IV PRN (09:42)
[2023-08-28] MEDS ORDERED: HYDROmorphone INJ 0.5 MG/0.5 ML SYR IV PRN (09:42)
[2023-08-28] MEDS ORDERED: MoRPHine SULFATE 2 MG/ML CARP IV PRN (09:42)
[2023-08-28] MEDS ORDERED: NALOXONE HCL 0.4 MG/1 ML VIAL/CARP IV PRN (09:42)
[2023-08-28] MEDS ORDERED: ONDANSETRON INJ 2 MG/ML 2 ML VIAL IV PRN ×2 (09:42→11:01)
[2023-08-28] MEDS ORDERED: diphenhydrAMINE 50 MG/ML VIAL IV PRN (09:42)
[2023-08-28] MEDS ORDERED: MEPERIDINE HCL 25 MG/ML CARP/VIAL IV PRN (09:42)
[2023-08-28] MEDS ORDERED: DC INTRASPINAL MORPHINE SCH (09:45)
[2023-08-28] MEDS ORDERED: NO NARCOTICS OR SEDATIVES SCH (09:45)
[2023-08-28] MEDS ORDERED: SODIUM CHLORIDE 0.9% 1,000 ML IV SCH (09:45)
[2023-08-28] MEDS ORDERED: fentaNYL citrate PF 100 MCG/2 ML VIAL ONE (10:47)
[2023-08-28] MEDS ORDERED: HYDROCORTISONE ACETATE 25 MG SUPP PR PRN (11:01)
[2023-08-28] MEDS ORDERED: SENNA 8.6 MG TAB PO PRN (11:01)
[2023-08-28] MEDS ORDERED: OXYTOCIN 20 UNITS/LR 1,002 ML IV SCH (11:01)
[2023-08-28] MEDS ORDERED: DIPHTHERIA/TETANUS/PERTUSSIS Vaccine (Tdap, Age 7+yrs) 0.5mL SYR/VL IM ONE (11:01)
[2023-08-28] MEDS ORDERED: MAGNESIUM HYDROXIDE SUSP 30 ML UDC PO PRN (11:01)
[2023-08-28] MEDS ORDERED: LACTATED RINGER'S 1,000 ML IV SCH (11:01)
[2023-08-28] MEDS ORDERED: PHENYLEPHRINE 100MCG/ML 10ML SYR IV ONE (11:01)
[2023-08-28] MEDS ORDERED: BENZOCAINE 20% SPRY 85 APPLN/85 GM CAN EXT PRN (11:01)
[2023-08-28] MEDS ORDERED: ePHEDrine sulfate 50 MG/5 ML SYR ONE (11:02)
[2023-08-28] MEDS ORDERED: OXYTOCIN 10 UNITS/ML VIAL ONE (11:06)
--- NOTE | 2023-08-28 11:08 | Operative Report ---
PG Post Operative Report Pre & Post Diagnosis Operation Date: 08/28/23 09:30 Pre-Op Diagnosis: Prior section Declines TOLAC Post-Op Diagnosis: Same I identified the patient and participated in the time-out.: Yes Procedure Operation Date: 08/28/23 09:30 Actual Procedures Repeat Lower Uterine Transverse Section Surgeon Mirella Cummings MD Associate Pastor Angelica Longoria RN Estimated Blood Loss 600 Findings Consistent with Post-Op Diagnosis Specimens Placenta, cord blood Anesthesia Type Spinal Complications none Disposition Accompanied Patient To Recovery: Yes Disposition: L&D Description of Procedure The patient was placed operating table in the supine position with a leftward tilt. She was prepped and draped in standard sterile fashion. The anesthetic was tested and found to be adequate. A time-out was held, identifying correct patient, procedure, positioning and preoperative antibiotics. There were no concerns. A Pfannenstiel skin incision was made with a knife and taken down to the underlying layer of fascia. The fascia was incised in the midline with the knife and taken out laterally with scissors. The superior edge of the fascial incision was grasped, elevated and dissected off the underlying rectus both superiorly and inferiorly. The muscles were bluntly in the midline. The peritoneum was entered bluntly. The incision was then stretched. The Jose retractor was placed. The vesicouterine peritoneum was identified, entered with scissors and taken out laterally with scissors. The bladder flap was created digitally. A hysterotomy incision was created transversely in the lower uterine segment, final entry being accomplished in a blunt manner with the washing machine operator's fingers. Clear amniotic fluid was encountered. The washing machine operator's hand was used to elevate the head to the hysterotomy. The head was delivered using mild fundal pressure and a Kiwi-cup, and the shoulders and body followed without difficulty. The cord was clamped and cut and the was then handed off to the awaiting assembler adjuster. Cord blood was obtained. The placenta was Manually extracted. The uterus was left in situ but examined and cleared of all clot and debris with moistened laparotomy sponges. The hysterotomy incision was repaired in one running-locked layer, with excellent hemostasis. The gutters were cleared of clot and debris. A final inspection of the hysterotomy revealed good hemostasis. The rectus muscles were allowed to reapproximate naturally. The fascia was then reapproximated with 1 Vicryl in a running nonlocked manner. The fascia was examined and found to be free of defect following closure. The subcutaneous tissue was copiously irrigated and reapproximated with 0-chromic, then the skin edges were closed with 4-0 monocryl in a subcuticular fashion. A dermabond dressing was applied. The calhoun was found to be draining clear yellow urine at completion of the procedure. I attest to the content of the Intraoperative Record and any orders documented therein. Any exceptions are noted below. I attest to the content of the Intraoperative Record and any orders documented therein. Any exceptions are noted below.
[2023-08-28] MEDS: SIMETHICONE 80 MG CHEW PO SCH ×3 (14:36→21:46)
--- NOTE | 2023-08-28 15:10 | Anesthesiology Progress Note ---
Date of Service August 28, 2023 Anesthesia Post Procedure Vital Signs Vital Signs: Temp Pulse Pulse Resp BP BP Pulse Ox 08/28/23 14:35 18 97 08/28/23 14:35 36.6 C 91 H 18 129/79 97 08/28/23 13:35 20 96 08/28/23 13:35 36.7 C 91 H 20 108/70 96 08/28/23 13:30 96 H 08/28/23 13:30 122/64 08/28/23 13:27 98 08/28/23 13:27 92 H 08/28/23 13:26 93 H 08/28/23 13:26 108/51 L 08/28/23 13:22 98 08/28/23 13:22 99 H 08/28/23 13:17 97 08/28/23 13:17 99 H 08/28/23 13:15 36.5 C 20 08/28/23 13:12 97 08/28/23 13:12 103 H 08/28/23 13:07 97 08/28/23 13:07 97 H 08/28/23 13:05 96 H 08/28/23 13:05 111/50 L 08/28/23 13:02 98 08/28/23 13:02 96 H 08/28/23 12:57 98 08/28/23 12:57 99 H 08/28/23 12:55 95 H 08/28/23 12:55 125/57 L 08/28/23 12:52 99 08/28/23 12:52 100 H 08/28/23 12:47 97 08/28/23 12:47 95 H 08/28/23 12:45 20 08/28/23 12:45 96 H 08/28/23 12:45 129/70 08/28/23 12:42 98 08/28/23 12:42 100 H 08/28/23 12:37 98 08/28/23 12:37 104 H 08/28/23 12:35 101 H 08/28/23 12:35 118/62 08/28/23 12:32 98 08/28/23 12:32 93 H 08/28/23 12:27 98 08/28/23 12:27 93 H 08/28/23 12:25 90 08/28/23 12:25 114/66 08/28/23 12:22 97 08/28/23 12:22 97 H 08/28/23 12:17 97 08/28/23 12:17 98 H 08/28/23 12:16 36.4 C L 20 08/28/23 12:16 36.4 C L 20 08/28/23 12:16 100 H 08/28/23 12:16 107/56 L 08/28/23 12:12 97 08/28/23 12:12 94 H 08/28/23 12:07 97 08/28/23 12:07 91 H 08/28/23 12:05 20 08/28/23 12:05 93 H 08/28/23 12:05 132/60 08/28/23 12:02 96 08/28/23 12:02 95 H 08/28/23 11:57 97 08/28/23 11:57 96 H 08/28/23 11:55 20 08/28/23 11:55 93 H 08/28/23 11:55 120/60 08/28/23 11:52 97 08/28/23 11:52 93 H 08/28/23 11:47 97 08/28/23 11:47 103 H 08/28/23 11:46 96 H 08/28/23 11:46 147/86 H 08/28/23 11:45 20 08/28/23 11:42 97 08/28/23 11:42 97 H 08/28/23 11:37 96 08/28/23 11:37 100 H 08/28/23 11:35 20 08/28/23 11:35 103 H 08/28/23 11:35 123/56 L 08/28/23 11:32 97 08/28/23 11:32 103 H 08/28/23 11:27 98 08/28/23 11:27 101 H 08/28/23 11:25 20 08/28/23 11:25 98 H 08/28/23 11:25 126/58 L 08/28/23 11:22 99 08/28/23 11:22 106 H 08/28/23 11:17 98 08/28/23 11:17 105 H 08/28/23 11:13 103 H 08/28/23 11:13 128/60 08/28/23 11:12 97 08/28/23 11:12 103 H 08/28/23 09:39 36.7 C 20 08/28/23 09:38 109 H 08/28/23 09:38 128/79 08/28/23 08:02 36.7 C 20 08/28/23 07:42 110 H 126/70 O2 Del Method 08/28/23 14:35 08/28/23 14:35 Room Air 08/28/23 13:35 08/28/23 13:35 Room Air 08/28/23 13:30 08/28/23 13:30 08/28/23 13:27 08/28/23 13:27 08/28/23 13:26 08/28/23 13:26 08/28/23 13:22 08/28/23 13:22 08/28/23 13:17 08/28/23 13:17 08/28/23 13:15 08/28/23 13:12 08/28/23 13:12 08/28/23 13:07 08/28/23 13:07 08/28/23 13:05 08/28/23 13:05 08/28/23 13:02 08/28/23 13:02 08/28/23 12:57 08/28/23 12:57 08/28/23 12:55 08/28/23 12:55 08/28/23 12:52 08/28/23 12:52 08/28/23 12:47 08/28/23 12:47 08/28/23 12:45 08/28/23 12:45 08/28/23 12:45 08/28/23 12:42 08/28/23 12:42 08/28/23 12:37 08/28/23 12:37 08/28/23 12:35 08/28/23 12:35 08/28/23 12:32 08/28/23 12:32 08/28/23 12:27 08/28/23 12:27 08/28/23 12:25 08/28/23 12:25 08/28/23 12:22 08/28/23 12:22 08/28/23 12:17 08/28/23 12:17 08/28/23 12:16 08/28/23 12:16 08/28/23 12:16 08/28/23 12:16 08/28/23 12:12 08/28/23 12:12 08/28/23 12:07 08/28/23 12:07 08/28/23 12:05 08/28/23 12:05 08/28/23 12:05 08/28/23 12:02 08/28/23 12:02 08/28/23 11:57 08/28/23 11:57 08/28/23 11:55 08/28/23 11:55 08/28/23 11:55 08/28/23 11:52 08/28/23 11:52 08/28/23 11:47 08/28/23 11:47 08/28/23 11:46 08/28/23 11:46 08/28/23 11:45 08/28/23 11:42 08/28/23 11:42 08/28/23 11:37 08/28/23 11:37 08/28/23 11:35 08/28/23 11:35 08/28/23 11:35 08/28/23 11:32 08/28/23 11:32 08/28/23 11:27 08/28/23 11:27 08/28/23 11:25 08/28/23 11:25 08/28/23 11:25 08/28/23 11:22 08/28/23 11:22 08/28/23 11:17 08/28/23 11:17 08/28/23 11:13 08/28/23 11:13 08/28/23 11:12 08/28/23 11:12 08/28/23 09:39 08/28/23 09:38 08/28/23 09:38 08/28/23 08:02 08/28/23 07:42 Pain Intensity Abdomen: Pain Intensity: 4 Transfer of Care Handoff Completed per policy Notes Mental Status: alert / awake / arousable and participated in evaluation Nausea / Vomiting: adequately controlled Pain: adequately controlled Airway Patency, RR, SpO2: stable & adequate BP & HR: stable & adequate Hydration State: stable & adequate Neuraxial Anesthesia: was administered and sensory block is resolving Anesthetic Complications: no major complications apparent and Pt Satisfied with anesthetic care
[2023-08-28] MEDS: DOCUSATE SODIUM 100 MG CAP PO SCH (21:46)
[2023-08-29] MEDS ORDERED: KETOROLAC 30 MG/ML VIAL IV PRN (03:43)
[2023-08-29] MEDS ORDERED: PROMETHAZINE HCL 25 MG in SODIUM CHLORIDE 0.9% 50 ML IV PRN (03:43)
[2023-08-29] MEDS ORDERED: diphenhydrAMINE Capsule 25 MG CAP PO PRN (03:43)
[2023-08-29] MEDS ORDERED: diphenhydrAMINE 50 MG/ML VIAL IV PRN (03:43)
[2023-08-29] MEDS: IBUPROFEN 600 MG TAB PO PRN ×4 (05:12→19:47)
[2023-08-29] MEDS: oxyCODONE/ACETAMINOPHEN 5mg/325mg TAB PO PRN ×4 (05:12→19:47)
--- NOTE | 2023-08-29 06:32 | Obstetrical Progress Note ---
Date of Service August 29, 2023 Assessment & Plan (1) Encounter for care and examination after delivery: Plan -Pt doing well clinically -Vital signs reviewed and WNL -HGB reviewed -Blood type A+ -Rubella immune -Encourage ambulation -Monitor and control pain with Motrin prn -Monitor lochia -Encourage Admission and Anticipated Discharge Date Admission Date: August 28, 2023 Supervising Physician Co-Signing Physician Notes Resident Physician Supervision Note: I was present with Dr. Hensley during the history and exam. I discussed the case with the resident and agree with the findings and plan as documented in the note. Any exceptions or clarifications are listed here: [None] Documented By: Julieta Roa MD, FACOG Subjective 22 yo POD #1 s/p Ambulation: ambulating normally Voiding: calhoun d/c this am Passing Gas:: Yes Diet Tolerance:: regular diet Lochia:: Small Feeding Type:: Current Pain Level: controlled Resting comfortably this AM in NAD. Denies RAMIREZ, CP, SOB, N/V/D, LE pain/swelling. Review of Systems Review of Systems: All systems reviewed & are unremarkable except as noted in HPI & below Physical Exam Physical Exam: General: patient resting comfortably, NAD, non-toxic in appearance, AA&O x 4, answers questions appropriately. Skin: warm, dry, intact HEENT: NC/AT, anicteric sclera, conjunctiva without injection, moist mucus membranes. Heart: +S1/S2, regular, no m/r/g Lungs: equal air entry bilaterally, no rales/rhonchi/wheezes Abd: +BS, soft, NT/ND, uterine fundus firm at umbilicus, Wound dry, clean, no erythematous Ext: warm, no clubbing/cyanosis or edema, Lesli's neg. Neuro: nonfocal, patient AA&O x 4, speech intact, no facial droop, moving all extremities on command. Results & Data Vital Signs (Past 12 Hours) Vital Signs Temp Pulse Resp BP Pulse Ox O2 Del Method 08/29/23 02:45 36.8 C 101 H 18 104/70 97 Room Air 08/29/23 01:00 18 95 08/29/23 00:00 18 96 08/28/23 23:03 36.9 C 98 H 18 113/76 97 Room Air 08/28/23 23:00 18 96 08/28/23 22:00 18 98 08/28/23 21:00 18 98 08/28/23 20:00 18 98 08/28/23 19:32 36.7 C 91 H 18 121/76 98 Room Air 08/28/23 19:00 18 98 08/28/23 18:42 18 97 Resident Activity Tracking Resident Involvement: Resident Care Provided Care Provided: OB Delivery
[2023-08-29 06:42] LABS: Basophils # (auto) 0.02 K/uL (0.00-0.20); Basophils % (auto) 0.2 %; Eosinophils # (auto) 0.07 K/uL (0.00-0.50); Eosinophils % (auto) 0.7 %; Hematocrit (blood only) 32.2 % (37.0-47.0); Hemoglobin 10.8 g/dl (12.0-16.0); Immature Granulocytes # (auto) 0.05 K/uL (0.01-0.20); Immature Granulocytes % (auto) 0.5 %; Lymphocytes # (auto) 2.25 K/uL (1.20-3.40); Lymphocytes % (auto) 21.9 %; Mean Corpuscular Hemoglobin 29.3 pg (25.0-34.0); Mean Corpuscular Hgb Conc 33.5 g/dL (32.0-36.0); Mean Corpuscular Volume 87.5 fL (80.0-100.0); Mean Platelet Volume 11.8 fL (9.4-12.4); Monocytes % (auto) 7.8 %; Neutrophils # (auto) 7.08 K/uL (1.40-6.50); Neutrophils % (auto) 68.9 %; Platelet Count 121 K/uL (130-400); RDW Coefficient of Variation 15.3 % (11.5-14.5); RDW Standard Deviation 47.8 fL (36.4-46.3); Red Blood Count 3.68 M/uL (4.20-5.40); White Blood Count 10.27 K/ul (4.8-10.8)
[2023-08-29] MEDS: FERROUS SULFATE 325 MG TAB PO SCH (08:56)
[2023-08-29] MEDS: PRENATAL VITAMIN 1 TAB PO SCH (08:56)
[2023-08-29] MEDS: DOCUSATE SODIUM 100 MG CAP PO SCH ×2 (08:56→19:46)
[2023-08-29] MEDS: SIMETHICONE 80 MG CHEW PO SCH ×4 (08:56→19:46)
[2023-08-29] MEDS ORDERED: bisacodyL 5 MG TABEC PO SCH (20:00)
[2023-08-30] MEDS: IBUPROFEN 600 MG TAB PO PRN ×2 (00:12→06:05)
[2023-08-30] MEDS: oxyCODONE/ACETAMINOPHEN 5mg/325mg TAB PO PRN ×2 (00:13→07:54)
[2023-08-30] MEDS: SIMETHICONE 80 MG CHEW PO SCH (07:54)
[2023-08-30] MEDS: PRENATAL VITAMIN 1 TAB PO SCH (07:54)
[2023-08-30] MEDS: FERROUS SULFATE 325 MG TAB PO SCH (07:54)
[2023-08-30] MEDS: DOCUSATE SODIUM 100 MG CAP PO SCH (07:54)
--- NOTE | 2023-08-30 07:55 | Obstetrical Progress Note ---
Date of Service August 30, 2023 Assessment & Plan (1) Encounter for supervision of normal in multigravida: Recovering well, desires d/c home. Instructions reviewed, all questions answered. Subjective Ambulation: ambulating normally Voiding: no voiding problems Passing Gas:: Yes Diet Tolerance:: regular diet Lochia:: Small Feeding Type:: breast feeding (with supplementation) Physical Exam Constitutional WD/WN, vitals as above Eyes PERRL, conjunctivae normal, anicteric sclerae Neck normal visual inspection Respiratory normal respiratory effort and able to speak in complete sentences; no respiratory distress and no labored breathing Cardiovascular Rate/Rhythm: regular rate and regular rhythm Extremities: no edema Chest (Breasts) Chest: normal inspection of chest Gastrointestinal (Abdomen) Inspection/Auscultation: abdomen normal to inspection Soft, postgravid Incision c/d/i surgical glue Psychiatric A+Ox3, euthymic affect Genitourinary OB Exam Abdomen: + fundal height Fundus: + firm and + relation to umbilicus (fundus just below umbilicus); not tender Results & Data Vital Signs (Past 12 Hours) Vital Signs Temp Pulse Resp BP Pulse Ox O2 Del Method 08/30/23 00:10 Room Air 08/29/23 23:00 97.5 F L 92 H 20 131/82 98 Room Air
[2023-08-30] MEDS ORDERED: bisacodyL 10 MG SUPP PR PRN (10:57)
--- NOTE | 2023-09-01 07:46 | Discharge Summary ---
Date of Service September 01, 2023 Admission Exam (Per Admitting) Constitutional WD/WN, vitals as above Eyes PERRL, conjunctivae normal, anicteric sclerae Neck normal visual inspection Respiratory normal respiratory effort and able to speak in complete sentences; no respiratory distress and no labored breathing Cardiovascular Rate/Rhythm: regular rate and regular rhythm Extremities: no edema Chest (Breasts) Chest: normal inspection of chest Gastrointestinal (Abdomen) Inspection/Auscultation: abdomen normal to inspection Psychiatric A+Ox3, euthymic affect Genitourinary OB Exam Abdomen: + fundal height Discharge Data Consultations 08/28/23 08:43 Consult Anesthesiology Stat Consult Anesthesiology Stat Procedures Performed Operation Date: 08/28/23 09:30 Actual Procedures p Section in LD; Repeat Lower Uterine Transverse Section for the of a live girl infant at 1041 - Mirella Cummings MD Hospital Course (1) Encounter for supervision of normal in multigravida: Recovering well, desires d/c home. Instructions reviewed, all questions answered. Coding Level of Care Code None Diagnoses Encounter for supervision of normal in multigravida Z34.80
== END 2023-08-30 11:45 | disposition home or self-care (01) | DRG 788 ==
LOC: EDSTATUS 07:30 → 4S1 07:36 → 4E2 13:45
DX: Z3A.39 39 weeks gestation of pregnancy; O34.211 Maternal care for low transverse scar from previous cesarean delivery; Z37.0 Single live birth